=== PATIENT | male | born 1935 | race African-American/Black ===

== ENCOUNTER 2017-05-25 20:51 | Inpatient (IN) | payer MEDICARE, OTHER ==
[~2017-05-25] VITALS: Ht 188 cm; Wt 94.4 kg
[~2017-05-25 20:51] MED LIST: ACET1TAB14 PO; AMIO100T4 PO; ASPI-1158 PO; ATOR10TA PO; DIGO125T82 PO; FERR-63 PO; GLIP10TA10 PO; LISI10TA5 PO; METO50TA5 PO; OMEP20CA4 PO
[2017-05-25] MEDS ORDERED: ACETAMINOPHEN 650MG/20.3ML UDC PO ONE (23:15)
[2017-05-26] MEDS ORDERED: FUROSEMIDE 40MG/4ML VIAL IVP ONE (00:15)
[2017-05-26 00:36] LABS: HEMATOCRIT. 33.9 % (42.0-52.0); HEMOGLOBIN. 11.5 g/dL (14.0-18.0); MEAN CORPUSCULAR HEMOGLOBIN 29.2 pg (28.0-32.0); MEAN CORPUSCULAR VOLUME 86.3 fL (80.0-94.0); MEAN PLATELET VOLUME 7.6 fl (7.4-10.4); PLATELET 183 x1000/uL (130-400); RED BLOOD CELL COUNT 3.93 mill/uL (4.7-6.1); RED CELL DISTRIBUTION WIDTH 15.2 % (11.6-14.6)
[2017-05-26 00:44] LABS: INR 1.2; PARTIAL THROMBOPLASTIN TIME 27.7 sec (24.0-34.0)
[2017-05-26 00:51] LABS: CARBON DIOXIDE 27 mEq/L (21-32); CHLORIDE 102 mEq/L (98-107); TROPONIN I < 0.02 ng/mL (0.00-0.04)
[2017-05-26 01:23] LABS: ATYPICAL LYMPHOCYTES 4; PLATELET ESTIMATE NORMAL
[2017-05-26 04:40] VITALS: BP 158/71
[2017-05-26] MEDS ORDERED: METO25TA6 PO (05:06)
[2017-05-26] MEDS ORDERED: GLIP10TA10 PO (05:06)
[2017-05-26] MEDS ORDERED: BAYER PO (05:06)
[2017-05-26] MEDS ORDERED: HYDR25TA PO (05:06)
[2017-05-26] MEDS ORDERED: AMLO10TA80 PO (05:06)
[2017-05-26] MEDS ORDERED: VITAMIN D2 PO (05:06)
[2017-05-26] MEDS ORDERED: LISI-604 PO (05:06)
[2017-05-26] MEDS ORDERED: CHOL20004 PO (05:06)
[2017-05-26] MEDS ORDERED: DEXTROSE 50% WATER 50ML SYRINGE IV PRN (05:45)
[2017-05-26] MEDS: BLOOD SUGAR DIAGNOSTIC STRIP TEST SCH ×4 (06:20→20:09)
[2017-05-26] MEDS: INSULIN LISPRO 100 UNITS/ML SUBCUT SCH ×4 (06:21→20:15)
[2017-05-26] MEDS: OMEPRAZOLE 20MG CAPSULE EXTENDED RELEASE PO SCH (06:35)
[2017-05-26 08:00] VITALS: BP 156/76
[2017-05-26] MEDS ORDERED: PNEUMOCOCCAL 23-VAL P-SAC VAC 0.5 ML IM ONE (08:00)
[2017-05-26] MEDS: ENOXAPARIN 40MG/0.4ML SYR SUBCUT SCH (08:22)
[2017-05-26] MEDS: ASPIRIN 81MG TABLET PO SCH (08:22)
[2017-05-26] MEDS: CARVEDILOL 3.125 MG TABLET PO SCH ×2 (08:23→20:09)
[2017-05-26] MEDS: AMLODIPINE 10MG TABLET PO SCH (08:23)
[2017-05-26] MEDS: FUROSEMIDE 40MG/4ML VIAL IVP SCH ×2 (08:25→17:38)
[2017-05-26] MEDS ORDERED: AMIODARONE HCL 200 MG TABLET PO SCH (09:00)
[2017-05-26] MEDS ORDERED: LISINOPRIL 20MG TABLET PO SCH (09:00)
[2017-05-26] MEDS ORDERED: MEDICATION NOT ON FORMULARY EA (Amiodarone HCl 200 MG) PO SCH (09:00)
[2017-05-26] MEDS ORDERED: BAYER 81 MG PO SCH (09:00)
[2017-05-26 09:40] LABS: BASOPHILS % 1.1 % (0.0-2.0); HEMATOCRIT. 34.6 % (42.0-52.0); HEMOGLOBIN. 11.7 g/dL (14.0-18.0); MEAN CORPUSCULAR VOLUME 85.9 fL (80.0-94.0); MEAN PLATELET VOLUME 7.9 fl (7.4-10.4); MONOCYTES % 8.8 % (2.0-8.0); NEUTROPHILS % 74.1 % (40.0-76.0); PLATELET 182 x1000/uL (130-400); RED BLOOD CELL COUNT 4.03 mill/uL (4.7-6.1); RED CELL DISTRIBUTION WIDTH 14.9 % (11.6-14.6)
[2017-05-26 10:11] LABS: CARBON DIOXIDE 26 mEq/L (21-32); CHLORIDE 101 mEq/L (98-107); HDL CHOLESTEROL 35 mg/dL (40-59); LDL CHOLESTEROL 26 mg/dL (5-100); TROPONIN I 0.02 ng/mL (0.00-0.04)
[2017-05-26] MEDS ORDERED: POTASSIUM CHLORIDE 20MEQ TABLET SR PO NR (10:45)
[2017-05-26 12:00] VITALS: BP 178/138
[2017-05-26] MEDS ORDERED: LISINOPRIL 20MG TABLET PO NR (12:30)
[2017-05-26] MEDS ORDERED: HYDRALAZINE 20MG/ML VIAL IV PRN (15:00)
[2017-05-26] MEDS ORDERED: CLONIDINE 0.1MG TABLET PO PRN (15:00)
[2017-05-26] MEDS ORDERED: FUROSEMIDE 40MG/4ML VIAL IVP SCH (15:30)
[2017-05-26 16:00] VITALS: BP 158/67
[2017-05-26] MEDS ORDERED: IPRATROPIUM/ALBUTEROL 0.5-3(2.5)MG/3ML NEB HHN PRN (16:41)
[2017-05-26 16:54] LABS: TROPONIN I 0.02 ng/mL (0.00-0.04)
[2017-05-26 17:06] LABS: DIGOXIN 1.2 ng/mL (0.9-2.0)
[2017-05-26] MEDS: LISINOPRIL 20MG TABLET PO SCH (17:38)
[2017-05-26] MEDS: ATORVASTATIN CALCIUM 10MG TABLET PO SCH (17:38)
[2017-05-26] MEDS ORDERED: DIGOXIN 125MCG TABLET PO SCH (18:00)
[2017-05-26 20:00] VITALS: BP 170/88
[2017-05-27] VITALS (7 sets, daily range): BP systolic 124–183; BP diastolic 72–88
[2017-05-27] MEDS: OMEPRAZOLE 20MG CAPSULE EXTENDED RELEASE PO SCH (06:32)
[2017-05-27] MEDS: LISINOPRIL 20MG TABLET PO SCH ×2 (06:32→17:53)
[2017-05-27] MEDS: BLOOD SUGAR DIAGNOSTIC STRIP TEST SCH ×4 (06:32→21:22)
[2017-05-27] MEDS: INSULIN LISPRO 100 UNITS/ML SUBCUT SCH ×4 (06:39→21:36)
[2017-05-27 06:41] LABS: BASOPHILS % 0.7 % (0.0-2.0); EOSINOPHILS % 1.9 % (0.0-5.0); HEMOGLOBIN. 11.5 g/dL (14.0-18.0); MEAN CORPUSCULAR HEMOGLOBIN 29.9 pg (28.0-32.0); MEAN CORPUSCULAR VOLUME 85.9 fL (80.0-94.0); MEAN PLATELET VOLUME 7.9 fl (7.4-10.4); MONOCYTES % 10.3 % (2.0-8.0); NEUTROPHILS % 71.1 % (40.0-76.0); PLATELET 183 x1000/uL (130-400); RED BLOOD CELL COUNT 3.84 mill/uL (4.7-6.1)
[2017-05-27] MEDS: ASPIRIN 81MG TABLET PO SCH (08:55)
[2017-05-27] MEDS: FUROSEMIDE 40MG/4ML VIAL IVP SCH ×2 (08:55→17:48)
[2017-05-27] MEDS: POTASSIUM CHLORIDE 20MEQ TABLET SR PO SCH ×2 (08:55→17:48)
[2017-05-27] MEDS: AMLODIPINE 10MG TABLET PO SCH (08:56)
[2017-05-27] MEDS: CARVEDILOL 3.125 MG TABLET PO SCH ×2 (08:56→21:00)
[2017-05-27] MEDS: ENOXAPARIN 40MG/0.4ML SYR SUBCUT SCH (08:57)
[2017-05-27 09:00] LABS: CARBON DIOXIDE 29 mEq/L (21-32); CHLORIDE 96 mEq/L (98-107); HDL CHOLESTEROL 37 mg/dL (40-59); LDL CHOLESTEROL 32 mg/dL (5-100); TROPONIN I 0.02 ng/mL (0.00-0.04)
[2017-05-27] MEDS ORDERED: MAGNESIUM 2 G PREMIX 50 ML IV ONE (10:30)
[2017-05-27] MEDS ORDERED: POTASSIUM CHLORIDE 20MEQ TABLET SR PO NR (11:30)
[2017-05-27] MEDS ORDERED: MAGNESIUM 2 G PREMIX 50 ML IV NR (12:00)
[2017-05-27] MEDS: HYDRALAZINE HCL 50MG TABLET PO SCH ×2 (13:28→21:31)
[2017-05-27] MEDS: ATORVASTATIN CALCIUM 10MG TABLET PO SCH (17:53)
[2017-05-28] VITALS: BP 153/73
[2017-05-28 04:00] VITALS: BP 132/57
[2017-05-28] MEDS: LISINOPRIL 20MG TABLET PO SCH ×2 (06:25→17:11)
[2017-05-28] MEDS: OMEPRAZOLE 20MG CAPSULE EXTENDED RELEASE PO SCH (06:25)
[2017-05-28] MEDS: BLOOD SUGAR DIAGNOSTIC STRIP TEST SCH ×4 (06:25→20:43)
[2017-05-28] MEDS: HYDRALAZINE HCL 50MG TABLET PO SCH ×3 (06:25→20:38)
[2017-05-28] MEDS: INSULIN LISPRO 100 UNITS/ML SUBCUT SCH ×4 (06:25→20:43)
[2017-05-28 07:26] LABS: EOSINOPHILS % 1.4 % (0.0-5.0); HEMATOCRIT. 38.1 % (42.0-52.0); HEMOGLOBIN. 12.7 g/dL (14.0-18.0); LYMPHOCYTES % 12.7 % (20.0-50.0); MEAN CORPUSCULAR HEMOGLOBIN 29.1 pg (28.0-32.0); MEAN CORPUSCULAR VOLUME 87.4 fL (80.0-94.0); MEAN PLATELET VOLUME 8.1 fl (7.4-10.4); MONOCYTES % 10.1 % (2.0-8.0); NEUTROPHILS % 74.8 % (40.0-76.0); PLATELET 205 x1000/uL (130-400); RED BLOOD CELL COUNT 4.36 mill/uL (4.7-6.1); RED CELL DISTRIBUTION WIDTH 15.1 % (11.6-14.6)
[2017-05-28 07:47] LABS: CARBON DIOXIDE 29 mEq/L (21-32); CHLORIDE 95 mEq/L (98-107)
[2017-05-28 08:00] VITALS: BP 154/68
[2017-05-28] MEDS: AMLODIPINE 10MG TABLET PO SCH (08:26)
[2017-05-28] MEDS: FUROSEMIDE 40MG/4ML VIAL IVP SCH ×2 (08:26→17:12)
[2017-05-28] MEDS: ASPIRIN 81MG TABLET PO SCH (08:26)
[2017-05-28] MEDS: ENOXAPARIN 40MG/0.4ML SYR SUBCUT SCH (08:27)
[2017-05-28] MEDS: POTASSIUM CHLORIDE 20MEQ TABLET SR PO SCH ×2 (08:27→17:11)
[2017-05-28] MEDS: CARVEDILOL 3.125 MG TABLET PO SCH ×2 (08:27→20:38)
[2017-05-28 12:00] VITALS: BP 155/96
[2017-05-28 16:00] VITALS: BP 152/56
[2017-05-28] MEDS ORDERED: HYDROCODONE/ACETAMINOPHEN 5/325MG TABLET PO PRN (16:16)
[2017-05-28] MEDS: ATORVASTATIN CALCIUM 10MG TABLET PO SCH (17:11)
[2017-05-28] MEDS: DOCUSATE SODIUM 100MG CAPSULE PO SCH (17:12)
[2017-05-28] MEDS: DICLOFENAC SODIUM 50MG EC TABLET PO SCH (17:12)
[2017-05-28 20:00] VITALS: BP 163/69
[2017-05-29] VITALS: BP 143/69
[2017-05-29 04:00] VITALS: BP 154/72
[2017-05-29] MEDS: OMEPRAZOLE 20MG CAPSULE EXTENDED RELEASE PO SCH (06:10)
[2017-05-29] MEDS: LISINOPRIL 20MG TABLET PO SCH ×2 (06:10→17:46)
[2017-05-29] MEDS: DICLOFENAC SODIUM 50MG EC TABLET PO SCH ×2 (06:10→17:45)
[2017-05-29] MEDS: HYDRALAZINE HCL 50MG TABLET PO SCH ×3 (06:11→21:10)
[2017-05-29] MEDS: BLOOD SUGAR DIAGNOSTIC STRIP TEST SCH ×4 (06:11→20:42)
[2017-05-29] MEDS: INSULIN LISPRO 100 UNITS/ML SUBCUT SCH ×4 (06:11→20:44)
[2017-05-29 06:17] LABS: CHLORIDE 94 mEq/L (98-107)
[2017-05-29 06:29] LABS: CARBON DIOXIDE 29 mEq/L (21-32)
[2017-05-29 06:58] LABS: BASOPHILS % 0.9 % (0.0-2.0); EOSINOPHILS % 2.1 % (0.0-5.0); HEMATOCRIT. 36.2 % (42.0-52.0); HEMOGLOBIN. 12.6 g/dL (14.0-18.0); LYMPHOCYTES % 16.6 % (20.0-50.0); MEAN CORPUSCULAR HEMOGLOBIN 29.7 pg (28.0-32.0); MEAN CORPUSCULAR VOLUME 85.7 fL (80.0-94.0); MONOCYTES % 11.6 % (2.0-8.0); NEUTROPHILS % 68.8 % (40.0-76.0); PLATELET 195 x1000/uL (130-400); RED BLOOD CELL COUNT 4.23 mill/uL (4.7-6.1); RED CELL DISTRIBUTION WIDTH 15.1 % (11.6-14.6)
[2017-05-29 08:00] VITALS: BP 140/57
[2017-05-29] MEDS: ENOXAPARIN 40MG/0.4ML SYR SUBCUT SCH (08:23)
[2017-05-29] MEDS: ASPIRIN 81MG TABLET PO SCH (08:23)
[2017-05-29] MEDS: FUROSEMIDE 40MG/4ML VIAL IVP SCH ×2 (08:23→17:45)
[2017-05-29] MEDS: POTASSIUM CHLORIDE 20MEQ TABLET SR PO SCH ×2 (08:23→17:45)
[2017-05-29] MEDS: CARVEDILOL 3.125 MG TABLET PO SCH ×2 (08:24→20:46)
[2017-05-29] MEDS: AMLODIPINE 10MG TABLET PO SCH (08:24)
[2017-05-29] MEDS: DOCUSATE SODIUM 100MG CAPSULE PO SCH ×2 (08:24→17:46)
[2017-05-29 12:00] VITALS: BP 149/55
[2017-05-29 16:00] VITALS: BP 149/54
[2017-05-29] MEDS: ATORVASTATIN CALCIUM 10MG TABLET PO SCH (17:45)
[2017-05-29] MEDS: APIXABAN 2.5 MG TABLET PO SCH (17:45)
[2017-05-29 20:00] VITALS: BP 143/69
[2017-05-30] VITALS: BP 146/71
[2017-05-30 04:00] VITALS: BP 158/77
[2017-05-30] MEDS: BLOOD SUGAR DIAGNOSTIC STRIP TEST SCH ×4 (06:08→21:00)
[2017-05-30] MEDS: INSULIN LISPRO 100 UNITS/ML SUBCUT SCH ×4 (06:09→21:00)
[2017-05-30] MEDS: HYDRALAZINE HCL 50MG TABLET PO SCH ×3 (06:27→22:20)
[2017-05-30] MEDS: LISINOPRIL 20MG TABLET PO SCH (06:27)
[2017-05-30 06:43] LABS: BASOPHILS % 0.9 % (0.0-2.0); EOSINOPHILS % 2.2 % (0.0-5.0); HEMATOCRIT. 37.8 % (42.0-52.0); MEAN CORPUSCULAR HEMOGLOBIN 29.4 pg (28.0-32.0); MEAN CORPUSCULAR VOLUME 85.5 fL (80.0-94.0); MEAN PLATELET VOLUME 7.8 fl (7.4-10.4); MONOCYTES % 11.8 % (2.0-8.0); NEUTROPHILS % 69.1 % (40.0-76.0); PLATELET 199 x1000/uL (130-400); RED BLOOD CELL COUNT 4.42 mill/uL (4.7-6.1); RED CELL DISTRIBUTION WIDTH 15.2 % (11.6-14.6)
[2017-05-30 08:00] VITALS: BP 132/80
[2017-05-30] MEDS: FAMOTIDINE 20MG TABLET PO SCH (09:57)
[2017-05-30] MEDS: CARVEDILOL 3.125 MG TABLET PO SCH ×2 (09:57→21:00)
[2017-05-30] MEDS: ASPIRIN 81MG TABLET PO SCH (09:57)
[2017-05-30] MEDS: FUROSEMIDE 40MG TABLET PO SCH (09:57)
[2017-05-30] MEDS: APIXABAN 2.5 MG TABLET PO SCH ×2 (09:57→17:22)
[2017-05-30] MEDS: DICLOFENAC SODIUM 50MG EC TABLET PO SCH ×2 (09:57→17:22)
[2017-05-30] MEDS: DOCUSATE SODIUM 100MG CAPSULE PO SCH ×2 (09:58→17:22)
[2017-05-30] MEDS: NIFEDIPINE XL 30MG TAB PO SCH (09:58)
[2017-05-30] MEDS: POTASSIUM CHLORIDE 20MEQ TABLET SR PO SCH ×2 (09:59→17:22)
[2017-05-30 12:00] VITALS: BP 131/60
[2017-05-30 17:03] VITALS: BP 104/46
[2017-05-30] MEDS: ATORVASTATIN CALCIUM 10MG TABLET PO SCH (17:22)
[2017-05-30 20:00] VITALS: BP 132/81
[2017-05-31] VITALS: BP 128/73
[2017-05-31 04:00] VITALS: BP 122/58
[2017-05-31] MEDS: DICLOFENAC SODIUM 50MG EC TABLET PO SCH ×2 (06:16→17:54)
[2017-05-31] MEDS: BLOOD SUGAR DIAGNOSTIC STRIP TEST SCH ×4 (06:16→21:02)
[2017-05-31] MEDS: HYDRALAZINE HCL 50MG TABLET PO SCH ×3 (06:16→21:03)
[2017-05-31] MEDS: INSULIN LISPRO 100 UNITS/ML SUBCUT SCH ×4 (06:17→21:00)
[2017-05-31 08:00] VITALS: BP 128/69
[2017-05-31] MEDS: CARVEDILOL 3.125 MG TABLET PO SCH ×2 (09:00→21:00)
[2017-05-31] MEDS: NIFEDIPINE XL 30MG TAB PO SCH (09:00)
[2017-05-31] MEDS: FUROSEMIDE 40MG TABLET PO SCH (09:03)
[2017-05-31] MEDS: FAMOTIDINE 20MG TABLET PO SCH (09:03)
[2017-05-31] MEDS: ASPIRIN 81MG TABLET PO SCH (09:03)
[2017-05-31] MEDS: POTASSIUM CHLORIDE 20MEQ TABLET SR PO SCH ×2 (09:03→17:54)
[2017-05-31] MEDS: DOCUSATE SODIUM 100MG CAPSULE PO SCH ×2 (09:03→17:54)
[2017-05-31] MEDS: APIXABAN 2.5 MG TABLET PO SCH ×2 (09:04→17:54)
[2017-05-31 12:00] VITALS: BP 124/66
[2017-05-31 16:00] VITALS: BP 133/68
[2017-05-31] MEDS: ATORVASTATIN CALCIUM 10MG TABLET PO SCH (17:54)
[2017-05-31 20:00] VITALS: BP 144/67
[2017-06-01] VITALS: BP 139/72
[2017-06-01 04:00] VITALS: BP_SYST 123; BP_SYST 146; BP_DIAS 69; BP_DIAS 79
[2017-06-01] MEDS: HYDRALAZINE HCL 50MG TABLET PO SCH ×3 (06:06→21:42)
[2017-06-01] MEDS: BLOOD SUGAR DIAGNOSTIC STRIP TEST SCH ×4 (06:06→21:42)
[2017-06-01] MEDS: INSULIN LISPRO 100 UNITS/ML SUBCUT SCH ×4 (06:07→21:00)
[2017-06-01 08:00] VITALS: BP 141/62
[2017-06-01] MEDS: DOCUSATE SODIUM 100MG CAPSULE PO SCH ×2 (08:50→16:41)
[2017-06-01] MEDS: APIXABAN 2.5 MG TABLET PO SCH ×2 (08:50→16:41)
[2017-06-01] MEDS: CARVEDILOL 3.125 MG TABLET PO SCH ×2 (08:51→09:00)
[2017-06-01] MEDS: POTASSIUM CHLORIDE 20MEQ TABLET SR PO SCH ×2 (08:51→16:22)
[2017-06-01] MEDS: FAMOTIDINE 20MG TABLET PO SCH (08:51)
[2017-06-01] MEDS: NIFEDIPINE XL 30MG TAB PO SCH (08:52)
[2017-06-01] MEDS: DICLOFENAC SODIUM 50MG EC TABLET PO SCH ×2 (08:52→16:41)
[2017-06-01 12:00] VITALS: BP 127/61
[2017-06-01 16:00] VITALS: BP 122/65
[2017-06-01] MEDS: ATORVASTATIN CALCIUM 10MG TABLET PO SCH (16:41)
[2017-06-01 20:00] VITALS: BP 137/67
[2017-06-02] VITALS: BP 131/65
[2017-06-02 04:00] VITALS: BP 141/75
[2017-06-02] MEDS: HYDRALAZINE HCL 50MG TABLET PO SCH ×3 (06:19→21:49)
[2017-06-02] MEDS: DICLOFENAC SODIUM 50MG EC TABLET PO SCH ×2 (06:19→17:33)
[2017-06-02] MEDS: BLOOD SUGAR DIAGNOSTIC STRIP TEST SCH ×4 (06:19→21:48)
[2017-06-02] MEDS: INSULIN LISPRO 100 UNITS/ML SUBCUT SCH ×4 (06:23→22:06)
[2017-06-02 06:48] LABS: BASOPHILS % 1.2 % (0.0-2.0); EOSINOPHILS % 1.9 % (0.0-5.0); HEMATOCRIT. 36.5 % (42.0-52.0); HEMOGLOBIN. 12.4 g/dL (14.0-18.0); LYMPHOCYTES % 17.4 % (20.0-50.0); MEAN CORPUSCULAR HEMOGLOBIN 29.2 pg (28.0-32.0); MEAN CORPUSCULAR VOLUME 86.1 fL (80.0-94.0); MEAN PLATELET VOLUME 7.7 fl (7.4-10.4); MONOCYTES % 11.3 % (2.0-8.0); NEUTROPHILS % 68.2 % (40.0-76.0); PLATELET 196 x1000/uL (130-400); RED BLOOD CELL COUNT 4.24 mill/uL (4.7-6.1); RED CELL DISTRIBUTION WIDTH 14.6 % (11.6-14.6)
[2017-06-02 08:00] VITALS: BP 107/52
[2017-06-02] MEDS: POTASSIUM CHLORIDE 20MEQ TABLET SR PO SCH ×2 (08:30→17:33)
[2017-06-02] MEDS: DOCUSATE SODIUM 100MG CAPSULE PO SCH ×2 (08:30→17:33)
[2017-06-02] MEDS: APIXABAN 2.5 MG TABLET PO SCH ×2 (08:30→17:33)
[2017-06-02] MEDS: NIFEDIPINE XL 30MG TAB PO SCH (08:30)
[2017-06-02] MEDS: FAMOTIDINE 20MG TABLET PO SCH (08:30)
[2017-06-02 12:00] VITALS: BP 128/62
[2017-06-02 16:00] VITALS: BP 108/60
[2017-06-02] MEDS ORDERED: NA PHOS,M-B/NA PHOS,DI-BA ENEMA 118ML PR PRN (16:00)
[2017-06-02] MEDS: ATORVASTATIN CALCIUM 10MG TABLET PO SCH (17:33)
[2017-06-02] MEDS ORDERED: MAGNESIUM CITRATE 300ML SOLUTION PO NR (18:30)
[2017-06-02 20:00] VITALS: BP 142/83
[2017-06-03] VITALS (7 sets, daily range): BP systolic 110–135; BP diastolic 57–99
[2017-06-03] MEDS: HYDRALAZINE HCL 50MG TABLET PO SCH ×3 (05:48→21:23)
[2017-06-03] MEDS: BLOOD SUGAR DIAGNOSTIC STRIP TEST SCH ×4 (05:49→21:24)
[2017-06-03] MEDS: INSULIN LISPRO 100 UNITS/ML SUBCUT SCH ×4 (06:19→21:00)
[2017-06-03 06:36] LABS: BASOPHILS % 1.2 % (0.0-2.0); EOSINOPHILS % 1.7 % (0.0-5.0); HEMATOCRIT. 38.4 % (42.0-52.0); HEMOGLOBIN. 12.9 g/dL (14.0-18.0); LYMPHOCYTES % 14.3 % (20.0-50.0); MEAN CORPUSCULAR HEMOGLOBIN 29.2 pg (28.0-32.0); MEAN CORPUSCULAR VOLUME 86.6 fL (80.0-94.0); MEAN PLATELET VOLUME 7.5 fl (7.4-10.4); MONOCYTES % 10.6 % (2.0-8.0); NEUTROPHILS % 72.2 % (40.0-76.0); PLATELET 213 x1000/uL (130-400); RED BLOOD CELL COUNT 4.43 mill/uL (4.7-6.1); RED CELL DISTRIBUTION WIDTH 15.3 % (11.6-14.6)
[2017-06-03] MEDS: NIFEDIPINE XL 30MG TAB PO SCH (08:20)
[2017-06-03] MEDS: DICLOFENAC SODIUM 50MG EC TABLET PO SCH (08:20)
[2017-06-03] MEDS: FAMOTIDINE 20MG TABLET PO SCH (08:20)
[2017-06-03] MEDS: DOCUSATE SODIUM 100MG CAPSULE PO SCH ×2 (08:20→18:01)
[2017-06-03] MEDS: APIXABAN 2.5 MG TABLET PO SCH ×2 (08:20→18:00)
[2017-06-03] MEDS: POTASSIUM CHLORIDE 20MEQ TABLET SR PO SCH (08:23)
[2017-06-03] MEDS ORDERED: APIX2.5T PO (13:07)
[2017-06-03] MEDS ORDERED: POTA20TA82 PO (13:07)
[2017-06-03] MEDS ORDERED: NIFE30TA83 PO (13:07)
[2017-06-03] MEDS ORDERED: METO25TA6 PO (13:07)
[2017-06-03] MEDS ORDERED: SODIUM POLYSTYRENE SULFONATE 15 G/60 ML BOT PO NR ×3 (14:00→21:30)
[2017-06-03] MEDS: ATORVASTATIN CALCIUM 10MG TABLET PO SCH (18:00)
[2017-06-04] VITALS: BP 124/63
[2017-06-04 04:00] VITALS: BP 119/68
[2017-06-04] MEDS: HYDRALAZINE HCL 50MG TABLET PO SCH ×3 (05:58→21:23)
[2017-06-04] MEDS: BLOOD SUGAR DIAGNOSTIC STRIP TEST SCH ×4 (06:00→20:42)
[2017-06-04] MEDS: INSULIN LISPRO 100 UNITS/ML SUBCUT SCH ×4 (06:00→20:42)
[2017-06-04 08:00] VITALS: BP 117/64
[2017-06-04] MEDS: NIFEDIPINE XL 30MG TAB PO SCH (09:00)
[2017-06-04] MEDS: DOCUSATE SODIUM 100MG CAPSULE PO SCH ×2 (09:52→18:04)
[2017-06-04] MEDS: APIXABAN 2.5 MG TABLET PO SCH ×2 (09:53→18:04)
[2017-06-04] MEDS: FAMOTIDINE 20MG TABLET PO SCH (09:53)
[2017-06-04 12:00] VITALS: BP 122/59
[2017-06-04 16:00] VITALS: BP 126/72
[2017-06-04] MEDS: ATORVASTATIN CALCIUM 10MG TABLET PO SCH (18:04)
[2017-06-04 20:00] VITALS: BP 128/61
[2017-06-05 04:00] VITALS: BP 159/70
[2017-06-05] MEDS: INSULIN LISPRO 100 UNITS/ML SUBCUT SCH ×2 (06:35→11:33)
[2017-06-05] MEDS: BLOOD SUGAR DIAGNOSTIC STRIP TEST SCH ×2 (06:35→11:33)
[2017-06-05] MEDS: HYDRALAZINE HCL 50MG TABLET PO SCH ×2 (06:36→13:28)
[2017-06-05 07:06] LABS: CARBON DIOXIDE 24 mEq/L (21-32); CHLORIDE 100 mEq/L (98-107); TROPONIN I < 0.02 ng/mL (0.00-0.04)
[2017-06-05 07:08] LABS: EOSINOPHILS % 1.6 % (0.0-5.0); HEMATOCRIT. 36.6 % (42.0-52.0); HEMOGLOBIN. 12.3 g/dL (14.0-18.0); LYMPHOCYTES % 17.3 % (20.0-50.0); MEAN CORPUSCULAR HEMOGLOBIN 29.1 pg (28.0-32.0); MEAN CORPUSCULAR VOLUME 86.4 fL (80.0-94.0); MEAN PLATELET VOLUME 7.6 fl (7.4-10.4); NEUTROPHILS % 69.1 % (40.0-76.0); PLATELET 197 x1000/uL (130-400); RED BLOOD CELL COUNT 4.24 mill/uL (4.7-6.1)
[2017-06-05 08:00] VITALS: BP 112/64
[2017-06-05] MEDS: FAMOTIDINE 20MG TABLET PO SCH (08:14)
[2017-06-05] MEDS: DOCUSATE SODIUM 100MG CAPSULE PO SCH (08:14)
[2017-06-05] MEDS: NIFEDIPINE XL 30MG TAB PO SCH (08:14)
[2017-06-05] MEDS: APIXABAN 2.5 MG TABLET PO SCH (08:14)
[2017-06-05 14:35] VITALS: BP 112/64
[2017-06-13] MEDS ORDERED: TRAM50TA3 PO (23:28)
[2017-06-13] MEDS ORDERED: DOCU-150 PO (23:28)
[2017-06-13] MEDS ORDERED: LISI-604 PO (23:28)
[2017-06-23] MEDS ORDERED: METR250T PO (11:08)
[2017-06-23] MEDS ORDERED: LEVO500T15 PO (11:08)
== END 2017-06-05 15:35 | disposition home or self-care (01) | DRG 291 ==
LOC: ER 21:57 → 5WST 05-26 01:24 → CANRESERV 05-26 02:53 → ENRESERV 05-26 02:53 → 5WST 05-26 05:02
PROVIDERS: ADMIT Internal Medicine; ATTEND Internal Medicine
DX: I13.0 Hypertensive heart and chronic kidney disease with heart failure and stage 1 through stage 4 chronic kidney disease, or unspecified chronic kidney disease (principal); J96.00 Acute respiratory failure, unspecified whether with hypoxia or hypercapnia; I50.33 Acute on chronic diastolic (congestive) heart failure; E87.1 Hypo-osmolality and hyponatremia; N17.9 Acute kidney failure, unspecified; I42.9 Cardiomyopathy, unspecified; E11.22 Type 2 diabetes mellitus with diabetic chronic kidney disease; E78.00 Pure hypercholesterolemia, unspecified; E78.5 Hyperlipidemia, unspecified; E86.9 Volume depletion, unspecified; E87.5 Hyperkalemia; E87.6 Hypokalemia; I35.0 Nonrheumatic aortic (valve) stenosis; I44.7 Left bundle-branch block, unspecified; I48.2 Chronic atrial fibrillation; N18.9 Chronic kidney disease, unspecified; Z79.01 Long term (current) use of anticoagulants; Z79.84 Long term (current) use of oral hypoglycemic drugs; Z79.899 Other long term (current) drug therapy; Z95.1 Presence of aortocoronary bypass graft; Z95.2 Presence of prosthetic heart valve; Z95.3 Presence of xenogenic heart valve
CPT/HCPCS: 36415; 71010; 76770; 80048; 80053; 80061; 80162; 82962; 83690; 83735; 83880; 84132; 84443; 84484; 85025; 85379; 85610; 85730; 90732; 93005; 93306; 93970; 96374; 97110; 97116; 97162; 97166; 97530; 99285; J0360; J1650; J1815; J1940; J3475; J7050; J7620

== ENCOUNTER 2018-09-22 11:37 | Inpatient (IN) | payer MEDICARE, OTHER ==
[~2018-09-22] VITALS: Ht 193 cm; Wt 116.6 kg
[~2018-09-22 11:37] MED LIST changes: -ACET1TAB14 PO; -AMIO100T4 PO; +APIX2.5T PO; -ASPI-1158 PO; +BAYER PO; +CHOL20004 PO; -DIGO125T82 PO; +DOCU-150 PO; -FERR-63 PO; +HYDR25TA PO; +LEVO500T2 PO; +LISI-604 PO; -LISI10TA5 PO; +METO25TA6 PO; -METO50TA5 PO; +METR250T PO; +NIFE30TA83 PO; -OMEP20CA4 PO; +POTA20TA82 PO; +TRAM50TA3 PO; +VITAMIN D2 PO
[2018-09-22 12:21] LABS: HEMATOCRIT. 32.3 % (42.0-52.0); HEMOGLOBIN. 10.5 g/dL (14.0-18.0); MEAN CORPUSCULAR HEMOGLOBIN 25.8 pg (28.0-32.0); MEAN CORPUSCULAR VOLUME 79.4 fL (80.0-94.0); MEAN PLATELET VOLUME 8.8 fl (7.4-10.4); PLATELET 149 x1000/uL (130-400); RED BLOOD CELL COUNT 4.07 mill/uL (4.7-6.1); RED CELL DISTRIBUTION WIDTH 16.4 % (11.6-14.6)
[2018-09-22 12:26] LABS: CHLORIDE 97 mEq/L (98-107); INR 1.2; PROTHROMBIN TIME 11.6 sec (9.1-11.1)
[2018-09-22 12:54] LABS: PLATELET ESTIMATE NORMAL
[2018-09-22] MEDS ORDERED: SODIUM CHLORIDE 0.9% 1,000 ML IV ONE (13:00)
[2018-09-22] MEDS ORDERED: FUROSEMIDE 100MG/10ML VIAL IV ONE (13:15)
[2018-09-22] MEDS ORDERED: INSULIN REGULAR (HUMULIN R) 300UNITS/3ML IV ONE (13:15)
[2018-09-22] MEDS ORDERED: DEXTROSE 50% WATER 50ML SYRINGE IV ONE (13:15)
[2018-09-22] MEDS: CEFTRIAXONE 1 G PREMIX 50 ML IV NR ×2 (14:00→15:20)
[2018-09-22 17:02] LABS: CLARITY URINE CLEAR (CLEAR); COLOR URINE YELLOW (YELLOW); KETONES URINE NEGATIVE (NEGATIVE); LEUKOCYTE ESTERASE URINE NEGATIVE (NEGATIVE); NITRITE URINE NEGATIVE (NEGATIVE); OCCULT BLOOD URINE TRACE (NEGATIVE); PROTEIN URINE NEGATIVE (NEGATIVE); SPECIFIC GRAVITY URINE 1.014 (1.005-1.030); UROBILINOGEN URINE 0.2 E.U./dL (0.2-1.0)
[2018-09-22] MEDS: MORPHINE SULFATE 4 MG/ML CPJ (NOT FOR IM USE) IV PRN (19:49)
[2018-09-22 20:00] VITALS: BP 119/53
[2018-09-22] MEDS ORDERED: APIX2.5T PO (20:26)
[2018-09-22] MEDS ORDERED: NAPR-677 PO (20:26)
[2018-09-22] MEDS ORDERED: OMEP20CA10 PO (20:26)
[2018-09-22] MEDS ORDERED: ELIQUIS XX SCH (21:15)
[2018-09-22] MEDS ORDERED: ONDANSETRON HCL 4MG/2ML INJ IV PRN (21:15)
[2018-09-22] MEDS ORDERED: DEXTROSE 50% WATER 50ML SYRINGE IV PRN (21:15)
[2018-09-22] MEDS ORDERED: SODIUM POLYSTYRENE SULFONATE 15 G/60 ML BOT PO NR (22:00)
[2018-09-22] MEDS ORDERED: INSULIN GLARGINE UD 100 UNITS/ML SYR SUBCUT SCH (22:00)
[2018-09-22] MEDS ORDERED: DOCUSATE SODIUM 100MG CAPSULE PO SCH (22:00)
[2018-09-22] MEDS: APIXABAN 2.5 MG TABLET PO SCH (22:07)
[2018-09-22] MEDS: DOCUSATE SODIUM 250MG CAPSULE PO SCH (22:46)
[2018-09-23] VITALS: BP 113/48
[2018-09-23 04:00] VITALS: BP 114/58
[2018-09-23] MEDS: BLOOD SUGAR DIAGNOSTIC STRIP TEST SCH ×4 (05:55→21:33)
[2018-09-23] MEDS ORDERED: INSULIN LISPRO 100 UNITS/ML SUBCUT SCH (07:15)
[2018-09-23 07:57] LABS: HEMATOCRIT. 30.2 % (42.0-52.0); HEMOGLOBIN. 9.9 g/dL (14.0-18.0); MEAN CORPUSCULAR HEMOGLOBIN 25.9 pg (28.0-32.0); MEAN CORPUSCULAR VOLUME 79.1 fL (80.0-94.0); MEAN PLATELET VOLUME 8.7 fl (7.4-10.4); PLATELET 147 x1000/uL (130-400); RED BLOOD CELL COUNT 3.82 mill/uL (4.7-6.1); RED CELL DISTRIBUTION WIDTH 16.4 % (11.6-14.6)
[2018-09-23 08:00] VITALS: BP 106/51
[2018-09-23] MEDS ORDERED: LACTULOSE 20G/30ML UDC PO PRN (08:45)
[2018-09-23] MEDS: ASPIRIN 81MG TABLET PO SCH (08:54)
[2018-09-23] MEDS: DOCUSATE SODIUM 250MG CAPSULE PO SCH ×2 (08:54→18:34)
[2018-09-23] MEDS: OMEPRAZOLE 20MG CAPSULE EXTENDED RELEASE PO SCH (08:54)
[2018-09-23] MEDS: APIXABAN 2.5 MG TABLET PO SCH ×2 (08:55→22:14)
[2018-09-23] MEDS: MORPHINE SULFATE 4 MG/ML CPJ (NOT FOR IM USE) IV PRN ×2 (08:57→22:15)
[2018-09-23] MEDS ORDERED: MEDICATION NOT ON FORMULARY EA (Lisinopril 1 TAB) PO SCH (09:00)
[2018-09-23] MEDS ORDERED: MEDICATION NOT ON FORMULARY EA (Metoprolol Tartrate 1 TAB) PO SCH (09:00)
[2018-09-23] MEDS ORDERED: BAYER 81 MG PO SCH (09:00)
[2018-09-23] MEDS ORDERED: LISINOPRIL 20MG TABLET PO SCH (09:00)
[2018-09-23 09:03] LABS: PHOSPHORUS 3.5 mg/dL (2.5-4.9)
[2018-09-23 10:21] LABS: TOTAL IRON BINDING CAPACITY 261 ug/dL (250-450)
[2018-09-23 12:00] VITALS: BP 102/54
[2018-09-23] MEDS ORDERED: INFLUENZA VIRUS VACCINE(AFLURIA) 0.5ML SYR IM ONE (12:00)
[2018-09-23] MEDS: NIFEDIPINE XL 30MG TAB PO SCH (12:00)
[2018-09-23] MEDS: INSULIN GLARGINE UD 100 UNITS/ML SYR SUBCUT SCH ×2 (12:58→22:49)
[2018-09-23] MEDS: INSULIN LISPRO 100 UNITS/ML SUBCUT SCH ×3 (13:24→22:15)
[2018-09-23] MEDS: SODIUM CHLORIDE 0.45% 1,000 ML IV SCH (13:30)
[2018-09-23] MEDS: METOPROLOL TARTRATE 25MG TABLET PO SCH (14:00)
[2018-09-23 14:08] LABS: CREATINE KINASE 248 IU/L (39-308)
[2018-09-23] MEDS ORDERED: CEFTRIAXONE 1,000 MG in DEXTROSE 5% WATER 50 ML IV SCH (15:00)
[2018-09-23 16:00] VITALS: BP 114/57
[2018-09-23 20:00] VITALS: BP 115/52
[2018-09-23 21:18] LABS: PLATELET ESTIMATE NORMAL
[2018-09-23] MEDS: ATORVASTATIN CALCIUM 10MG TABLET PO SCH (22:14)
[2018-09-23] MEDS: IRON SUCROSE COMPLEX 100 MG/5 ML ML IV SCH (22:49)
[2018-09-24] VITALS (8 sets, daily range): BP systolic 85–107; BP diastolic 39–56
[2018-09-24] MEDS: SODIUM CHLORIDE 0.45% 1,000 ML IV SCH (03:34)
[2018-09-24] MEDS: BLOOD SUGAR DIAGNOSTIC STRIP TEST SCH ×4 (05:42→20:56)
[2018-09-24 08:04] LABS: HEMATOCRIT. 28.8 % (42.0-52.0); HEMOGLOBIN. 9.5 g/dL (14.0-18.0); MEAN CORPUSCULAR VOLUME 79.1 fL (80.0-94.0); MEAN PLATELET VOLUME 8.9 fl (7.4-10.4); PLATELET 148 x1000/uL (130-400); RED BLOOD CELL COUNT 3.65 mill/uL (4.7-6.1); RED CELL DISTRIBUTION WIDTH 16.6 % (11.6-14.6)
[2018-09-24] MEDS: METOPROLOL TARTRATE 25MG TABLET PO SCH (09:00)
[2018-09-24] MEDS: INSULIN LISPRO 100 UNITS/ML SUBCUT SCH ×7 (09:33→20:57)
[2018-09-24] MEDS: GLIPIZIDE 5MG XL TABLET PO SCH (09:34)
[2018-09-24] MEDS: ASPIRIN 81MG TABLET PO SCH (09:34)
[2018-09-24] MEDS: DOCUSATE SODIUM 250MG CAPSULE PO SCH ×2 (09:34→18:55)
[2018-09-24] MEDS: OMEPRAZOLE 20MG CAPSULE EXTENDED RELEASE PO SCH (09:34)
[2018-09-24] MEDS: APIXABAN 2.5 MG TABLET PO SCH ×2 (09:41→20:56)
[2018-09-24 11:10] LABS: PLATELET ESTIMATE NORMAL
[2018-09-24] MEDS: CEFTRIAXONE 1 G PREMIX 50 ML IV SCH (11:19)
[2018-09-24] MEDS: INSULIN GLARGINE UD 100 UNITS/ML SYR SUBCUT SCH ×2 (11:20→20:57)
[2018-09-24] MEDS: NIFEDIPINE XL 30MG TAB PO SCH (12:00)
[2018-09-24] MEDS: ATORVASTATIN CALCIUM 10MG TABLET PO SCH (20:56)
[2018-09-24] MEDS: IRON SUCROSE COMPLEX 100 MG/5 ML ML IV SCH (22:08)
[2018-09-25] VITALS: BP 99/53
[2018-09-25] MEDS: SODIUM CHLORIDE 0.45% 1,000 ML IV SCH ×2 (02:32→15:32)
[2018-09-25 04:00] VITALS: BP 131/51
[2018-09-25] MEDS: INSULIN LISPRO 100 UNITS/ML SUBCUT SCH ×7 (07:40→21:00)
[2018-09-25 08:00] VITALS: BP 129/50
[2018-09-25] MEDS: BLOOD SUGAR DIAGNOSTIC STRIP TEST SCH ×4 (08:14→21:00)
[2018-09-25] MEDS: GLIPIZIDE 5MG XL TABLET PO SCH (09:07)
[2018-09-25] MEDS: DOCUSATE SODIUM 250MG CAPSULE PO SCH ×2 (09:08→17:43)
[2018-09-25] MEDS: OMEPRAZOLE 20MG CAPSULE EXTENDED RELEASE PO SCH (09:08)
[2018-09-25] MEDS: APIXABAN 2.5 MG TABLET PO SCH ×2 (09:08→23:01)
[2018-09-25] MEDS: METOPROLOL TARTRATE 25MG TABLET PO SCH (09:08)
[2018-09-25] MEDS: ASPIRIN 81MG TABLET PO SCH (09:09)
[2018-09-25] MEDS: CEFTRIAXONE 1 G PREMIX 50 ML IV SCH (09:09)
[2018-09-25 10:05] LABS: HEMATOCRIT. 29.3 % (42.0-52.0); HEMOGLOBIN. 9.4 g/dL (14.0-18.0); MEAN CORPUSCULAR HEMOGLOBIN 25.4 pg (28.0-32.0); MEAN PLATELET VOLUME 8.9 fl (7.4-10.4); PLATELET 155 x1000/uL (130-400); RED BLOOD CELL COUNT 3.71 mill/uL (4.7-6.1); RED CELL DISTRIBUTION WIDTH 16.2 % (11.6-14.6)
[2018-09-25] MEDS: INSULIN GLARGINE UD 100 UNITS/ML SYR SUBCUT SCH ×2 (10:26→23:04)
[2018-09-25 12:00] VITALS: BP 99/63
[2018-09-25] MEDS: NIFEDIPINE XL 30MG TAB PO SCH (12:00)
[2018-09-25 13:34] LABS: PLATELET ESTIMATE NORMAL
[2018-09-25] MEDS: AZITHROMYCIN 500 MG TABLET PO SCH (15:30)
[2018-09-25] MEDS: TAMSULOSIN HCL 0.4MG SR CAPSULE PO SCH (15:32)
[2018-09-25 15:34] VITALS: BP 140/51
[2018-09-25] MEDS: DEXAMETHASONE 4MG/ML 1ML VIAL IV SCH ×2 (17:43→23:01)
[2018-09-25 19:27] LABS: CLARITY URINE CLOUDY (CLEAR); KETONES URINE NEGATIVE (NEGATIVE); LEUKOCYTE ESTERASE URINE TRACE (NEGATIVE); NITRITE URINE NEGATIVE (NEGATIVE); OCCULT BLOOD URINE TRACE (NEGATIVE); PROTEIN URINE 1+ (NEGATIVE); SPECIFIC GRAVITY URINE 1.018 (1.005-1.030)
[2018-09-25 19:39] LABS: COLOR URINE YELLOW (YELLOW)
[2018-09-25] MEDS: IRON SUCROSE COMPLEX 100 MG/5 ML ML IV SCH (23:01)
[2018-09-25] MEDS: ATORVASTATIN CALCIUM 10MG TABLET PO SCH (23:02)
[2018-09-25] MEDS: HYDROCODONE/ACETAMINOPHEN 5/325MG TABLET PO PRN (23:02)
[2018-09-26] VITALS: BP 107/49
[2018-09-26 04:00] VITALS: BP 103/54
[2018-09-26] MEDS: SODIUM CHLORIDE 0.45% 1,000 ML IV SCH ×2 (05:55→12:45)
[2018-09-26 06:18] LABS: HEMATOCRIT. 29.2 % (42.0-52.0); HEMOGLOBIN. 9.5 g/dL (14.0-18.0); MEAN CORPUSCULAR HEMOGLOBIN 25.4 pg (28.0-32.0); MEAN CORPUSCULAR VOLUME 77.6 fL (80.0-94.0); MEAN PLATELET VOLUME 8.4 fl (7.4-10.4); PLATELET 166 x1000/uL (130-400); RED BLOOD CELL COUNT 3.76 mill/uL (4.7-6.1); RED CELL DISTRIBUTION WIDTH 16.6 % (11.6-14.6)
[2018-09-26] MEDS: DEXAMETHASONE 4MG/ML 1ML VIAL IV SCH ×3 (06:22→17:47)
[2018-09-26] MEDS: BLOOD SUGAR DIAGNOSTIC STRIP TEST SCH ×4 (06:23→20:30)
[2018-09-26] MEDS: HYDROCODONE/ACETAMINOPHEN 5/325MG TABLET PO PRN ×2 (06:27→16:52)
[2018-09-26] MEDS: INSULIN LISPRO 100 UNITS/ML SUBCUT SCH ×7 (07:40→21:30)
[2018-09-26 08:00] VITALS: BP 123/58
[2018-09-26] MEDS: DOCUSATE SODIUM 250MG CAPSULE PO SCH ×2 (10:24→16:52)
[2018-09-26] MEDS: ASPIRIN 81MG TABLET PO SCH (10:25)
[2018-09-26] MEDS: APIXABAN 2.5 MG TABLET PO SCH ×2 (10:25→21:27)
[2018-09-26] MEDS: GLIPIZIDE 5MG XL TABLET PO SCH (10:25)
[2018-09-26] MEDS: OMEPRAZOLE 20MG CAPSULE EXTENDED RELEASE PO SCH (10:25)
[2018-09-26] MEDS: METOPROLOL TARTRATE 25MG TABLET PO SCH (10:29)
[2018-09-26] MEDS: MORPHINE SULFATE 4 MG/ML CPJ (NOT FOR IM USE) IV PRN (10:30)
[2018-09-26] MEDS: CEFTRIAXONE 1 G PREMIX 50 ML IV SCH (10:31)
[2018-09-26] MEDS: INSULIN GLARGINE UD 100 UNITS/ML SYR SUBCUT SCH ×2 (10:33→21:31)
[2018-09-26] MEDS: TAMSULOSIN HCL 0.4MG SR CAPSULE PO SCH (10:37)
[2018-09-26 11:19] LABS: PLATELET ESTIMATE NORMAL
[2018-09-26 12:00] VITALS: BP 115/62
[2018-09-26] MEDS: NIFEDIPINE XL 30MG TAB PO SCH (12:45)
[2018-09-26 16:00] VITALS: BP 106/53
[2018-09-26] MEDS: AZITHROMYCIN 500 MG TABLET PO SCH (16:51)
[2018-09-26 20:00] VITALS: BP 132/52
[2018-09-26] MEDS: ATORVASTATIN CALCIUM 10MG TABLET PO SCH (21:27)
[2018-09-27] VITALS: BP_SYST 114; BP_SYST 132; BP_DIAS 51; BP_DIAS 64
[2018-09-27] MEDS: SODIUM CHLORIDE 0.45% 1,000 ML IV SCH ×2 (03:39→16:56)
[2018-09-27] MEDS: MORPHINE SULFATE 4 MG/ML CPJ (NOT FOR IM USE) IV PRN (03:39)
[2018-09-27 04:00] VITALS: BP 140/54
[2018-09-27 06:10] LABS: HEMATOCRIT. 30.5 % (42.0-52.0); HEMOGLOBIN. 9.9 g/dL (14.0-18.0); MEAN CORPUSCULAR HEMOGLOBIN 25.3 pg (28.0-32.0); MEAN CORPUSCULAR VOLUME 78.2 fL (80.0-94.0); MEAN PLATELET VOLUME 8.5 fl (7.4-10.4); PLATELET 198 x1000/uL (130-400); RED CELL DISTRIBUTION WIDTH 16.3 % (11.6-14.6)
[2018-09-27] MEDS: BLOOD SUGAR DIAGNOSTIC STRIP TEST SCH ×4 (06:53→20:51)
[2018-09-27 08:00] VITALS: BP 125/55
[2018-09-27] MEDS: METOPROLOL TARTRATE 25MG TABLET PO SCH (08:40)
[2018-09-27] MEDS: HYDROCODONE/ACETAMINOPHEN 5/325MG TABLET PO PRN ×3 (08:40→20:42)
[2018-09-27] MEDS: DOCUSATE SODIUM 250MG CAPSULE PO SCH ×2 (08:40→17:38)
[2018-09-27] MEDS: TAMSULOSIN HCL 0.4MG SR CAPSULE PO SCH (08:41)
[2018-09-27] MEDS: ASPIRIN 81MG TABLET PO SCH (08:41)
[2018-09-27] MEDS: FAMOTIDINE 20MG TABLET PO SCH (08:41)
[2018-09-27] MEDS: GLIPIZIDE 5MG XL TABLET PO SCH (08:41)
[2018-09-27] MEDS: INSULIN LISPRO 100 UNITS/ML SUBCUT SCH ×7 (08:42→20:52)
[2018-09-27] MEDS: CEFTRIAXONE 1 G PREMIX 50 ML IV SCH (09:10)
[2018-09-27] MEDS: APIXABAN 2.5 MG TABLET PO SCH ×2 (10:16→20:41)
[2018-09-27] MEDS: INSULIN GLARGINE UD 100 UNITS/ML SYR SUBCUT SCH ×2 (10:18→21:39)
[2018-09-27 12:00] VITALS: BP 109/78
[2018-09-27] MEDS ORDERED: DEXAMETHASONE 4MG/ML 1ML VIAL IV SCH (12:00)
[2018-09-27] MEDS: NIFEDIPINE XL 30MG TAB PO SCH (12:02)
[2018-09-27 13:50] LABS: PLATELET ESTIMATE NORMAL
[2018-09-27 16:00] VITALS: BP 103/54
[2018-09-27] MEDS: AZITHROMYCIN 500 MG TABLET PO SCH (16:55)
[2018-09-27] MEDS ORDERED: VANCOMYCIN 2,000 MG in DEXT 5% WATER 500 ML IV SCH (17:00)
[2018-09-27 20:00] VITALS: BP 126/53
[2018-09-27] MEDS: ATORVASTATIN CALCIUM 10MG TABLET PO SCH (20:41)
[2018-09-27] MEDS: DEXAMETHASONE 4MG/ML 1ML VIAL IV SCH (20:43)
[2018-09-28] VITALS: BP 132/56
[2018-09-28] MEDS: HYDROCODONE/ACETAMINOPHEN 5/325MG TABLET PO PRN ×3 (03:26→13:44)
[2018-09-28 04:00] VITALS: BP 120/53
[2018-09-28] MEDS: DEXAMETHASONE 4MG/ML 1ML VIAL IV SCH ×3 (05:40→21:37)
[2018-09-28 07:32] LABS: HEMATOCRIT. 30.7 % (42.0-52.0); MEAN CORPUSCULAR HEMOGLOBIN 25.4 pg (28.0-32.0); MEAN CORPUSCULAR VOLUME 78.4 fL (80.0-94.0); MEAN PLATELET VOLUME 8.3 fl (7.4-10.4); PLATELET 217 x1000/uL (130-400); RED BLOOD CELL COUNT 3.92 mill/uL (4.7-6.1); RED CELL DISTRIBUTION WIDTH 16.4 % (11.6-14.6)
[2018-09-28 08:00] VITALS: BP 150/60
[2018-09-28] MEDS: CEFTRIAXONE 1 G PREMIX 50 ML IV SCH (08:10)
[2018-09-28] MEDS: INSULIN LISPRO 100 UNITS/ML SUBCUT SCH ×7 (08:10→21:00)
[2018-09-28] MEDS: SODIUM CHLORIDE 0.45% 1,000 ML IV SCH (08:11)
[2018-09-28] MEDS: ASPIRIN 81MG TABLET PO SCH (08:21)
[2018-09-28] MEDS: GLIPIZIDE 5MG XL TABLET PO SCH (08:21)
[2018-09-28] MEDS: DOCUSATE SODIUM 250MG CAPSULE PO SCH ×2 (08:21→18:35)
[2018-09-28] MEDS: APIXABAN 2.5 MG TABLET PO SCH ×2 (08:23→21:30)
[2018-09-28] MEDS: TAMSULOSIN HCL 0.4MG SR CAPSULE PO SCH (08:25)
[2018-09-28] MEDS: METOPROLOL TARTRATE 25MG TABLET PO SCH (08:26)
[2018-09-28] MEDS: BLOOD SUGAR DIAGNOSTIC STRIP TEST SCH ×4 (08:27→21:00)
[2018-09-28] MEDS: FAMOTIDINE 20MG TABLET PO SCH (08:37)
[2018-09-28 09:08] LABS: ATYPICAL LYMPHOCYTES 2
[2018-09-28 09:09] LABS: PLATELET ESTIMATE NORMAL
[2018-09-28 12:00] VITALS: BP 159/59
[2018-09-28] MEDS ORDERED: LIDOCAINE 5% PATCH TOP SCH (12:30)
[2018-09-28] MEDS ORDERED: BISACODYL 10MG SUPP PR PRN (12:30)
[2018-09-28] MEDS: INSULIN GLARGINE UD 100 UNITS/ML SYR SUBCUT SCH ×2 (12:47→22:00)
[2018-09-28] MEDS: NIFEDIPINE XL 30MG TAB PO SCH (12:48)
[2018-09-28 16:00] VITALS: BP 111/50
[2018-09-28 17:06] LABS: ANA IFA Negative (.)
[2018-09-28] MEDS: LIDOCAINE 5% PATCH TOP SCH ×3 (18:23)
[2018-09-28] MEDS: AZITHROMYCIN 500 MG TABLET PO SCH (18:35)
[2018-09-28] MEDS: VANCOMYCIN 1250MG in DEXTROSE 5% WATER 250ML IV SCH (18:35)
[2018-09-28 20:00] VITALS: BP 121/54
[2018-09-28] MEDS ORDERED: POLYETHYLENE GLYCOL 3350 (17GM) 1 DOSE PACK PO SCH (21:00)
[2018-09-28] MEDS: ATORVASTATIN CALCIUM 10MG TABLET PO SCH (21:30)
[2018-09-28] MEDS: HYDROCODONE/ACETAMINOPHEN 10/325MG TABLET PO PRN (22:33)
[2018-09-29] VITALS: BP 127/57
[2018-09-29] MEDS: SODIUM CHLORIDE 0.45% 1,000 ML IV SCH ×2 (01:06→17:19)
[2018-09-29 04:00] VITALS: BP 133/67
[2018-09-29] MEDS: DEXAMETHASONE 4MG/ML 1ML VIAL IV SCH (05:04)
[2018-09-29] MEDS: HYDROCODONE/ACETAMINOPHEN 10/325MG TABLET PO PRN ×2 (05:05→21:57)
[2018-09-29] MEDS: BLOOD SUGAR DIAGNOSTIC STRIP TEST SCH ×4 (05:11→21:00)
[2018-09-29] MEDS: INSULIN LISPRO 100 UNITS/ML SUBCUT SCH ×5 (07:40→21:00)
[2018-09-29 08:00] VITALS: BP 146/62
[2018-09-29] MEDS: GLIPIZIDE 5MG XL TABLET PO SCH (08:10)
[2018-09-29] MEDS: FAMOTIDINE 20MG TABLET PO SCH (09:00)
[2018-09-29] MEDS: CEFTRIAXONE 1 G PREMIX 50 ML IV SCH (09:00)
[2018-09-29] MEDS: METOPROLOL TARTRATE 25MG TABLET PO SCH (09:00)
[2018-09-29] MEDS: LIDOCAINE 5% PATCH TOP SCH ×4 (09:00→11:59)
[2018-09-29] MEDS: DOCUSATE SODIUM 250MG CAPSULE PO SCH (09:00)
[2018-09-29] MEDS: ASPIRIN 81MG TABLET PO SCH (09:00)
[2018-09-29] MEDS: TAMSULOSIN HCL 0.4MG SR CAPSULE PO SCH (09:00)
[2018-09-29 09:48] LABS: HEMATOCRIT. 31.3 % (42.0-52.0); MEAN CORPUSCULAR HEMOGLOBIN 25.2 pg (28.0-32.0); MEAN CORPUSCULAR VOLUME 78.6 fL (80.0-94.0); MEAN PLATELET VOLUME 7.8 fl (7.4-10.4); PLATELET 225 x1000/uL (130-400); RED BLOOD CELL COUNT 3.98 mill/uL (4.7-6.1); RED CELL DISTRIBUTION WIDTH 16.4 % (11.6-14.6)
[2018-09-29 09:56] LABS: CHLORIDE 103 mEq/L (98-107)
[2018-09-29] MEDS: APIXABAN 2.5 MG TABLET PO SCH ×2 (10:00→21:55)
[2018-09-29] MEDS: INSULIN GLARGINE UD 100 UNITS/ML SYR SUBCUT SCH ×2 (10:00→22:39)
[2018-09-29] MEDS: VANCOMYCIN 1250MG in DEXTROSE 5% WATER 250ML IV SCH (10:00)
[2018-09-29 12:00] VITALS: BP 115/78
[2018-09-29] MEDS: HYDROCODONE/ACETAMINOPHEN 5/325MG TABLET PO PRN (12:20)
[2018-09-29] MEDS: NIFEDIPINE XL 30MG TAB PO SCH (12:22)
[2018-09-29] MEDS: AZITHROMYCIN 500 MG TABLET PO SCH (12:23)
[2018-09-29] MEDS ORDERED: BISACODYL 10MG SUPP PR PRN (13:15)
[2018-09-29] MEDS ORDERED: NA PHOS,M-B/NA PHOS,DI-BA ENEMA 118ML PR SCH (13:15)
[2018-09-29 16:00] VITALS: BP 113/49
[2018-09-29 16:50] LABS: PLATELET ESTIMATE NORMAL
[2018-09-29] MEDS: LACTULOSE 20G/30ML UDC PO SCH ×3 (17:00→21:58)
[2018-09-29] MEDS: DOCUSATE SODIUM 100MG CAPSULE PO SCH (17:08)
[2018-09-29 20:00] VITALS: BP 133/57
[2018-09-29] MEDS ORDERED: POLYETHYLENE GLYCOL 3350 (17GM) 1 DOSE PACK PO SCH (21:00)
[2018-09-29] MEDS: DEXAMETHASONE 2MG TABLET PO SCH (21:55)
[2018-09-29] MEDS: ATORVASTATIN CALCIUM 10MG TABLET PO SCH (21:55)
[2018-09-30] VITALS: BP 154/63
[2018-09-30] MEDS: CEFEPIME 2,000 MG in DEXT 5% WATER 100 ML IV SCH ×2 (00:17→11:38)
[2018-09-30] MEDS: VANCOMYCIN 1 G PREMIX 200 ML IV SCH ×2 (00:17→11:38)
[2018-09-30 04:00] VITALS: BP 139/60
[2018-09-30] MEDS: HYDROCODONE/ACETAMINOPHEN 5/325MG TABLET PO PRN ×2 (05:13→11:38)
[2018-09-30 06:57] LABS: HEMATOCRIT. 30.5 % (42.0-52.0); HEMOGLOBIN. 9.9 g/dL (14.0-18.0); MEAN CORPUSCULAR HEMOGLOBIN 25.6 pg (28.0-32.0); MEAN PLATELET VOLUME 7.8 fl (7.4-10.4); PLATELET 241 x1000/uL (130-400); RED BLOOD CELL COUNT 3.86 mill/uL (4.7-6.1); RED CELL DISTRIBUTION WIDTH 16.4 % (11.6-14.6)
[2018-09-30] MEDS: INSULIN LISPRO 100 UNITS/ML SUBCUT SCH ×4 (07:40→12:55)
[2018-09-30] MEDS: BLOOD SUGAR DIAGNOSTIC STRIP TEST SCH ×2 (07:56→11:41)
[2018-09-30 08:00] VITALS: BP 124/63
[2018-09-30 08:55] LABS: CHLORIDE 103 mEq/L (98-107)
[2018-09-30] MEDS ORDERED: NA PHOS,M-B/NA PHOS,DI-BA ENEMA 118ML PR PRN (09:00)
[2018-09-30] MEDS: APIXABAN 2.5 MG TABLET PO SCH (09:10)
[2018-09-30] MEDS: GLIPIZIDE 5MG XL TABLET PO SCH (09:10)
[2018-09-30] MEDS: INSULIN GLARGINE UD 100 UNITS/ML SYR SUBCUT SCH (09:12)
[2018-09-30] MEDS: DEXAMETHASONE 2MG TABLET PO SCH (09:13)
[2018-09-30] MEDS: FAMOTIDINE 20MG TABLET PO SCH (09:13)
[2018-09-30] MEDS: TAMSULOSIN HCL 0.4MG SR CAPSULE PO SCH (09:13)
[2018-09-30] MEDS: DOCUSATE SODIUM 100MG CAPSULE PO SCH ×2 (09:14→16:03)
[2018-09-30] MEDS: METOPROLOL TARTRATE 25MG TABLET PO SCH (09:14)
[2018-09-30] MEDS: ASPIRIN 81MG TABLET PO SCH (09:14)
[2018-09-30] MEDS: LIDOCAINE 5% PATCH TOP SCH ×2 (09:41→09:42)
[2018-09-30] MEDS: SODIUM CHLORIDE 0.45% 1,000 ML IV SCH (09:55)
[2018-09-30 10:21] LABS: PLATELET ESTIMATE NORMAL
[2018-09-30] MEDS: NIFEDIPINE XL 30MG TAB PO SCH (11:38)
[2018-09-30 12:00] VITALS: BP 132/61
[2018-09-30] MEDS: HYDROCODONE/ACETAMINOPHEN 10/325MG TABLET PO PRN (14:15)
[2018-09-30] MEDS ORDERED: PREGABALIN 50 MG CAPSULE PO SCH (15:30)
[2018-09-30] MEDS ORDERED: CELECOXIB 200MG CAPSULE PO SCH (15:30)
[2018-09-30 16:25] VITALS: BP 154/51
[2018-09-30 17:00] VITALS: BP 146/51
[2018-09-30] MEDS ORDERED: METHYLPREDNISOLONE SOD SUCC 40 MG/ML VIAL IV SCH (22:00)
[2018-10-01] MEDS ORDERED: VANCOMYCIN 1500MG in DEXTROSE 5% WATER 250ML IV SCH (08:00)
[2018-10-01] MEDS ORDERED: PREGABALIN 75MG CAPSULE PO SCH (09:00)
== END 2018-09-30 18:00 | DRG 871 ==
LOC: ER 11:37 → 5WST 13:04 → ENRESERV 15:48 → 5WST 18:00 → 7WST 09-23 20:24
PROVIDERS: ADMIT Internal Medicine; ATTEND Internal Medicine
DX: A41.9 Sepsis, unspecified organism (principal); G82.50 Quadriplegia, unspecified; J18.9 Pneumonia, unspecified organism; N17.9 Acute kidney failure, unspecified; E44.0 Moderate protein-calorie malnutrition; N39.0 Urinary tract infection, site not specified; I13.0 Hypertensive heart and chronic kidney disease with heart failure and stage 1 through stage 4 chronic kidney disease, or unspecified chronic kidney disease; J98.11 Atelectasis; K56.609 Unspecified intestinal obstruction, unspecified as to partial versus complete obstruction; M48.56XA Collapsed vertebra, not elsewhere classified, lumbar region, initial encounter for fracture; M62.82 Rhabdomyolysis; E87.5 Hyperkalemia; M48.02 Spinal stenosis, cervical region; M48.061 Spinal stenosis, lumbar region without neurogenic claudication; D64.9 Anemia, unspecified; D72.810 Lymphocytopenia; E11.22 Type 2 diabetes mellitus with diabetic chronic kidney disease; E11.65 Type 2 diabetes mellitus with hyperglycemia; E78.5 Hyperlipidemia, unspecified; E86.9 Volume depletion, unspecified; E87.8 Other disorders of electrolyte and fluid balance, not elsewhere classified; G89.4 Chronic pain syndrome; I25.10 Atherosclerotic heart disease of native coronary artery without angina pectoris; I35.0 Nonrheumatic aortic (valve) stenosis; I48.91 Unspecified atrial fibrillation; I50.9 Heart failure, unspecified; K80.20 Calculus of gallbladder without cholecystitis without obstruction; M19.90 Unspecified osteoarthritis, unspecified site; M35.3 Polymyalgia rheumatica; M47.816 Spondylosis without myelopathy or radiculopathy, lumbar region; M48.04 Spinal stenosis, thoracic region; M48.07 Spinal stenosis, lumbosacral region; M51.34 Other intervertebral disc degeneration, thoracic region; M51.36 Other intervertebral disc degeneration, lumbar region; M60.9 Myositis, unspecified; N18.9 Chronic kidney disease, unspecified; Z79.01 Long term (current) use of anticoagulants; Z82.49 Family history of ischemic heart disease and other diseases of the circulatory system; Z95.1 Presence of aortocoronary bypass graft; Z95.2 Presence of prosthetic heart valve; Z68.31 Body mass index [BMI] 31.0-31.9, adult
CPT/HCPCS: 36415; 70551; 71045; 72141; 72146; 72148; 73562; 74176; 76770; 80048; 80061; 80202; 82140; 82550; 82728; 82962; 83036; 83540; 83550; 84100; 84145; 84550; 85651; 86140; 86256; 90686; 92523; 92610; 93005; 93970; 96361; 96365; 96366; 96375; 97162; 97530; 99285; C1893; J0692; J0696; J1100; J1815; J1940; J2270; J2405; J3370; J7030; J7060; J8540

== ENCOUNTER 2020-01-21 18:21 | Inpatient (IN) | payer MEDICARE, MEDICAID ==
[~2020-01-21] VITALS: Ht 172.7 cm; Wt 81.6 kg
[~2020-01-21 18:21] MED LIST changes: +AMLO5TAB88 PO; -CHOL20004 PO; -DOCU-150 PO; +FAMO20TA8 PO; -GLIP10TA10 PO; -LEVO500T2 PO; -METR250T PO; +NAPR-677 PO; +OMEP20CA14 PO; +RISP05 PO; -TRAM50TA3 PO; -VITAMIN D2 PO
[2020-01-21] MEDS ORDERED: VANCOMYCIN 1 G PREMIX 200 ML IV SCH (19:00)
[2020-01-21] MEDS ORDERED: SODIUM CHLORIDE 0.9% 1000ML BAG (SEPSIS BOLUS) IV ONE (19:00)
[2020-01-21] MEDS ORDERED: PIPERACILLIN/TAZ 3.375G PREMIX 50 ML IV ONE (19:00)
[2020-01-21 20:38] LABS: EOSINOPHILS % 4.7 % (0.0-5.0); HEMATOCRIT. 24.3 % (42.0-52.0); HEMOGLOBIN. 8.1 g/dL (14.0-18.0); LYMPHOCYTES % 22.5 % (20.0-50.0); MEAN CORPUSCULAR HEMOGLOBIN 27.2 pg (28.0-32.0); MEAN CORPUSCULAR VOLUME 81.6 fL (80.0-94.0); MEAN PLATELET VOLUME 6.9 fl (7.4-10.4); MONOCYTES % 9.1 % (2.0-8.0); NEUTROPHILS % 62.7 % (40.0-76.0); PLATELET 273 x1000/uL (130-400); RED BLOOD CELL COUNT 2.98 mill/uL (4.7-6.1); RED CELL DISTRIBUTION WIDTH 16.6 % (11.6-14.6)
[2020-01-21 20:43] LABS: CHLORIDE 108 mEq/L (98-107)
[2020-01-21] MEDS ORDERED: FUROSEMIDE 40MG/4ML VIAL IVP ONE (21:00)
[2020-01-21] MEDS ORDERED: ASPIRIN 300MG SUPP PR ONE (21:00)
[2020-01-22 00:43] LABS: CLARITY URINE CLEAR (CLEAR); COLOR URINE YELLOW (YELLOW); KETONES URINE NEGATIVE (NEGATIVE); LEUKOCYTE ESTERASE URINE 2+ (NEGATIVE); NITRITE URINE NEGATIVE (NEGATIVE); OCCULT BLOOD URINE 2+ (NEGATIVE); PROTEIN URINE NEGATIVE (NEGATIVE); SPECIFIC GRAVITY URINE 1.006 (1.005-1.030); UROBILINOGEN URINE 0.2 E.U./dL (0.2-1.0)
[2020-01-22] MEDS: APIXABAN 5 MG TABLET PO SCH ×4 (01:00→18:01)
[2020-01-22] MEDS: ATORVASTATIN CALCIUM 40MG TABLET PO SCH ×2 (01:00→21:41)
[2020-01-22] MEDS ORDERED: RISPERIDONE 0.5MG TABLET PO SCH (01:00)
[2020-01-22] MEDS ORDERED: NIFEDIPINE XL 30MG TAB PO SCH (01:00)
[2020-01-22] MEDS: OMEPRAZOLE 20MG CAPSULE EXTENDED RELEASE PO SCH (01:00)
[2020-01-22] MEDS ORDERED: ASPIRIN 325MG TABLET PO SCH (01:00)
[2020-01-22] MEDS ORDERED: PIPERACILLIN/TAZ 3.375G PREMIX 50 ML IV SCH (02:00)
[2020-01-22] MEDS ORDERED: VANCOMYCIN 1 G PREMIX 200 ML IV SCH (05:00)
[2020-01-22] MEDS ORDERED: ONDANSETRON HCL 4MG/2ML INJ IV PRN (09:15)
[2020-01-22] MEDS ORDERED: FUROSEMIDE 40MG/4ML VIAL IVP SCH (09:15)
[2020-01-22 10:00] VITALS: BP 113/60
[2020-01-22 12:00] VITALS: BP 124/61
[2020-01-22] MEDS: CEFEPIME 1,000 MG in DEXTROSE 5% WATER 50 ML IV SCH (13:30)
[2020-01-22 16:00] VITALS: BP 134/76
[2020-01-22] MEDS: FUROSEMIDE 40MG TABLET PO SCH ×2 (17:15→18:00)
[2020-01-22] MEDS ORDERED: VANCOMYCIN HCL 750 MG in DEXT 5% WATER 250 ML IV SCH (18:00)
[2020-01-22 20:00] VITALS: BP 146/76
[2020-01-22] MEDS: RISPERIDONE 0.5MG TABLET PO SCH (21:41)
[2020-01-22] MEDS: AMLODIPINE 5MG TABLET PO SCH (21:41)
[2020-01-22] MEDS: LISINOPRIL 20MG TABLET PO SCH (21:41)
[2020-01-22] MEDS: IRON SUCROSE COMPLEX 100 MG/5 ML ML IV SCH (21:43)
[2020-01-22] MEDS: LORAZEPAM 2MG/ML CPJ IV PRN (23:13)
[2020-01-23] VITALS: BP 130/62
[2020-01-23] MEDS: DIPHENHYDRAMINE 50MG/ML VIAL IV PRN (00:56)
[2020-01-23] MEDS: CEFEPIME 1,000 MG in DEXTROSE 5% WATER 50 ML IV SCH ×2 (02:40→15:50)
[2020-01-23 04:00] VITALS: BP 136/62
[2020-01-23 06:07] LABS: BASOPHILS % 0.5 % (0.0-2.0); EOSINOPHILS % 3.4 % (0.0-5.0); HEMATOCRIT. 26.4 % (42.0-52.0); HEMOGLOBIN. 8.8 g/dL (14.0-18.0); LYMPHOCYTES % 19.3 % (20.0-50.0); MEAN CORPUSCULAR HEMOGLOBIN 27.5 pg (28.0-32.0); MEAN CORPUSCULAR VOLUME 82.6 fL (80.0-94.0); NEUTROPHILS % 66.8 % (40.0-76.0); PLATELET 245 x1000/uL (130-400); RED BLOOD CELL COUNT 3.19 mill/uL (4.7-6.1); RED CELL DISTRIBUTION WIDTH 17.3 % (11.6-14.6)
[2020-01-23] MEDS: FUROSEMIDE 40MG TABLET PO SCH (06:19)
[2020-01-23] MEDS: OMEPRAZOLE 20MG CAPSULE EXTENDED RELEASE PO SCH (06:19)
[2020-01-23 07:05] LABS: CHLORIDE 110 mEq/L (98-107)
[2020-01-23 08:18] VITALS: BP 147/52
[2020-01-23] MEDS: METOPROLOL TARTRATE 25MG TABLET PO SCH ×2 (09:00→10:01)
[2020-01-23] MEDS: AMLODIPINE 5MG TABLET PO SCH ×2 (09:00→10:00)
[2020-01-23] MEDS: RISPERIDONE 0.5MG TABLET PO SCH ×2 (09:00→10:01)
[2020-01-23] MEDS: LISINOPRIL 20MG TABLET PO SCH ×2 (09:00→10:01)
[2020-01-23] MEDS: APIXABAN 5 MG TABLET PO SCH ×2 (10:00→17:00)
[2020-01-23] MEDS ORDERED: FUROSEMIDE 40MG/4ML VIAL IVP SCH (10:00)
[2020-01-23] MEDS ORDERED: FUROSEMIDE 40MG TABLET PO SCH (10:00)
[2020-01-23 12:19] VITALS: BP 137/68
[2020-01-23 16:04] VITALS: BP 127/55
[2020-01-23] MEDS ORDERED: IPRATROPIUM/ALBUTEROL 0.5-3(2.5)MG/3ML NEB HHN PRN (16:30)
[2020-01-23] MEDS: DEXT 5%/0.45% NACL 1000ML 1,000 ML IV SCH (17:07)
[2020-01-23] MEDS: FUROSEMIDE 40MG/4ML VIAL IVP SCH (18:49)
[2020-01-23 20:00] VITALS: BP 149/72
[2020-01-23] MEDS: ATORVASTATIN CALCIUM 40MG TABLET PO SCH ×3 (21:00→22:15)
[2020-01-23] MEDS: IRON SUCROSE COMPLEX 100 MG/5 ML ML IV SCH (21:52)
[2020-01-23] MEDS: ACETAMINOPHEN 325MG TABLET PO PRN (23:03)
[2020-01-23] MEDS: LORAZEPAM 2MG/ML CPJ IV PRN (23:10)
[2020-01-24] VITALS: BP 144/79
[2020-01-24] MEDS: DIPHENHYDRAMINE 50MG/ML VIAL IV PRN ×2 (01:06→21:37)
[2020-01-24] MEDS: CEFEPIME 1,000 MG in DEXTROSE 5% WATER 50 ML IV SCH ×2 (03:16→15:43)
[2020-01-24 04:00] VITALS: BP 135/66
[2020-01-24 06:09] LABS: BASOPHILS % 0.6 % (0.0-2.0); EOSINOPHILS % 3.8 % (0.0-5.0); HEMATOCRIT. 28.3 % (42.0-52.0); HEMOGLOBIN. 9.2 g/dL (14.0-18.0); LYMPHOCYTES % 20.6 % (20.0-50.0); MEAN CORPUSCULAR HEMOGLOBIN 26.8 pg (28.0-32.0); MEAN CORPUSCULAR VOLUME 82.3 fL (80.0-94.0); MEAN PLATELET VOLUME 7.3 fl (7.4-10.4); MONOCYTES % 11.1 % (2.0-8.0); NEUTROPHILS % 63.9 % (40.0-76.0); PLATELET 259 x1000/uL (130-400); RED BLOOD CELL COUNT 3.44 mill/uL (4.7-6.1); RED CELL DISTRIBUTION WIDTH 18.3 % (11.6-14.6)
[2020-01-24 06:19] LABS: CHLORIDE 106 mEq/L (98-107)
[2020-01-24] MEDS: FUROSEMIDE 40MG/4ML VIAL IVP SCH ×2 (06:39→17:22)
[2020-01-24] MEDS: OMEPRAZOLE 20MG CAPSULE EXTENDED RELEASE PO SCH ×2 (06:39→06:45)
[2020-01-24] MEDS: AMLODIPINE 5MG TABLET PO SCH (08:57)
[2020-01-24] MEDS: LISINOPRIL 20MG TABLET PO SCH (08:58)
[2020-01-24] MEDS: APIXABAN 5 MG TABLET PO SCH ×2 (08:58→17:22)
[2020-01-24] MEDS: RISPERIDONE 0.5MG TABLET PO SCH (08:58)
[2020-01-24] MEDS ORDERED: KCL 20MEQ/100ML PREMIX 100 ML IV SCH (09:00)
[2020-01-24] MEDS: METOPROLOL TARTRATE 25MG TABLET PO SCH (11:37)
[2020-01-24 12:00] VITALS: BP 114/63
[2020-01-24] MEDS: ACETAMINOPHEN 325MG TABLET PO PRN (13:19)
[2020-01-24 16:00] VITALS: BP 94/60
[2020-01-24] MEDS: DEXT 5%/0.45% NACL 1000ML 1,000 ML IV SCH (17:23)
[2020-01-24 20:00] VITALS: BP 125/66
[2020-01-24] MEDS: IRON SUCROSE COMPLEX 100 MG/5 ML ML IV SCH (21:37)
[2020-01-24] MEDS: ATORVASTATIN CALCIUM 40MG TABLET PO SCH (21:37)
[2020-01-25] VITALS: BP 134/63
[2020-01-25] MEDS: CEFEPIME 1,000 MG in DEXTROSE 5% WATER 50 ML IV SCH (03:11)
[2020-01-25] MEDS: DIPHENHYDRAMINE 50MG/ML VIAL IV PRN ×2 (03:19→10:52)
[2020-01-25 04:00] VITALS: BP 141/70
[2020-01-25 08:15] VITALS: BP 117/56
[2020-01-25] MEDS: APIXABAN 5 MG TABLET PO SCH (09:21)
[2020-01-25] MEDS: RISPERIDONE 0.5MG TABLET PO SCH (09:21)
[2020-01-25] MEDS: OMEPRAZOLE 20MG CAPSULE EXTENDED RELEASE PO SCH (09:22)
[2020-01-25] MEDS: AMLODIPINE 5MG TABLET PO SCH (09:22)
[2020-01-25 12:11] VITALS: BP 107/53
== END 2020-01-25 14:55 | DRG 987 ==
LOC: ER 18:21 → EDBEDREQTM 19:51 → EDBEDREQ 19:51 → EDBEDREQTM 19:53 → EDBEDREQ 19:53 → 6WST 22:02 → EDBEDREQ 22:04 → EDBEDREQTM 22:04 → ENRESERV 01-22 08:31
PROVIDERS: ADMIT Internal Medicine; ATTEND Internal Medicine
PROC: 0QBM0ZZ Excision of Left Tarsal, Open Approach (ICD-10-PCS; principal; 2020-01-24)
DX: E11.42 Type 2 diabetes mellitus with diabetic polyneuropathy (principal); L89.624 Pressure ulcer of left heel, stage 4; G93.41 Metabolic encephalopathy; E43 Unspecified severe protein-calorie malnutrition; N39.0 Urinary tract infection, site not specified; I48.20 Chronic atrial fibrillation, unspecified; I42.9 Cardiomyopathy, unspecified; M86.8X7 Other osteomyelitis, ankle and foot; E11.69 Type 2 diabetes mellitus with other specified complication; I11.0 Hypertensive heart disease with heart failure; E87.8 Other disorders of electrolyte and fluid balance, not elsewhere classified; E78.5 Hyperlipidemia, unspecified; D63.8 Anemia in other chronic diseases classified elsewhere; E11.649 Type 2 diabetes mellitus with hypoglycemia without coma; E87.6 Hypokalemia; F25.9 Schizoaffective disorder, unspecified; F03.90 Unspecified dementia, unspecified severity, without behavioral disturbance, psychotic disturbance, mood disturbance, and anxiety; I25.10 Atherosclerotic heart disease of native coronary artery without angina pectoris; I50.9 Heart failure, unspecified; Z79.01 Long term (current) use of anticoagulants; Z79.899 Other long term (current) drug therapy; Z95.1 Presence of aortocoronary bypass graft; Z68.27 Body mass index [BMI] 27.0-27.9, adult; Z74.01 Bed confinement status; Z87.891 Personal history of nicotine dependence; Z87.440 Personal history of urinary (tract) infections
CPT/HCPCS: 36415; 70551; 71045; 73620; 80048; 80053; 81003; 82140; 82962; 83605; 83880; 84145; 84484; 85025; 87106; 92610; 93005; 93306; 97165; 99285; J0692; J1200; J1940; J2060; J2543; J3370; J3480; J7030; J7060

== ENCOUNTER 2020-02-09 13:13 | Inpatient (IN) | payer MEDICARE, MEDICAID ==
[~2020-02-09] VITALS: Ht 182.9 cm; Wt 75.5 kg
[~2020-02-09 13:13] MED LIST changes: -BAYER PO
[2020-02-09] MEDS ORDERED: PIPERACILLIN/TAZ 3.375G PREMIX 50 ML IV ONE (13:45)
[2020-02-09] MEDS ORDERED: VANCOMYCIN 1 G PREMIX 200 ML IV ONE (13:45)
[2020-02-09] MEDS ORDERED: SODIUM CHLORIDE 0.9% 1000ML BAG (SEPSIS BOLUS) IV ONE (13:45)
[2020-02-09 14:13] LABS: BASOPHILS % 0.7 % (0.0-2.0); EOSINOPHILS % 2.9 % (0.0-5.0); HEMATOCRIT. 27.8 % (42.0-52.0); HEMOGLOBIN. 9.2 g/dL (14.0-18.0); LYMPHOCYTES % 25.8 % (20.0-50.0); MEAN CORPUSCULAR HEMOGLOBIN 27.8 pg (28.0-32.0); MEAN CORPUSCULAR VOLUME 84.2 fL (80.0-94.0); MEAN PLATELET VOLUME 7.4 fl (7.4-10.4); MONOCYTES % 7.8 % (2.0-8.0); NEUTROPHILS % 62.8 % (40.0-76.0); PLATELET 170 x1000/uL (130-400); RED CELL DISTRIBUTION WIDTH 21.4 % (11.6-14.6)
[2020-02-09 14:21] LABS: CHLORIDE 108 mEq/L (98-107)
[2020-02-09 14:22] LABS: INR 1.3; PROTHROMBIN TIME 13.8 sec (9.6-11.0)
[2020-02-09] MEDS ORDERED: POTASSIUM CHLORIDE 20MEQ TABLET SR PO ONE (14:45)
[2020-02-09] MEDS ORDERED: POTASSIUM CHLORIDE INJ 40 MEQ in DEXT 5% WATER 250 ML IV ONE (14:45)
[2020-02-09] MEDS ORDERED: ONDANSETRON HCL 4MG/2ML INJ IV PRN (17:15)
[2020-02-09 17:27] LABS: CLARITY URINE CLOUDY (CLEAR); COLOR URINE YELLOW (YELLOW); KETONES URINE TRACE (NEGATIVE); LEUKOCYTE ESTERASE URINE 3+ (NEGATIVE); NITRITE URINE NEGATIVE (NEGATIVE); OCCULT BLOOD URINE 2+ (NEGATIVE); PH URINE 5.5 (4.5-8.0); PROTEIN URINE 2+ (NEGATIVE); SPECIFIC GRAVITY URINE 1.014 (1.005-1.030); UROBILINOGEN URINE 0.2 E.U./dL (0.2-1.0)
[2020-02-09 18:11] VITALS: BP 98/66
[2020-02-09 18:18] VITALS: BP 98/66
[2020-02-09 19:40] VITALS: BP 123/76
[2020-02-09] MEDS ORDERED: CEFEPIME 1,000 MG in DEXTROSE 5% WATER 50 ML IV SCH (20:30)
[2020-02-09] MEDS: SODIUM CHLORIDE 0.45% 1,000 ML IV SCH (21:55)
[2020-02-09 22:00] VITALS: BP 109/73
[2020-02-09] MEDS ORDERED: MAGNESIUM 2 G PREMIX 50 ML IV SCH (22:00)
[2020-02-09] MEDS: LORAZEPAM 2MG/ML CPJ IV PRN (23:35)
[2020-02-10] VITALS (20 sets, daily range): BP systolic 108–141; BP diastolic 58–75
[2020-02-10] MEDS: BLOOD SUGAR DIAGNOSTIC STRIP TEST SCH ×5 (00:43→20:14)
[2020-02-10] MEDS ORDERED: KCL 20MEQ/100ML PREMIX 100 ML IV NR (02:00)
[2020-02-10] MEDS: INSULIN LISPRO 100 UNITS/ML SUBCUT SCH ×4 (07:20→20:14)
[2020-02-10 07:58] LABS: BASOPHILS % 0.9 % (0.0-2.0); EOSINOPHILS % 3.5 % (0.0-5.0); HEMATOCRIT. 28.2 % (42.0-52.0); HEMOGLOBIN. 9.3 g/dL (14.0-18.0); LYMPHOCYTES % 17.3 % (20.0-50.0); MEAN CORPUSCULAR HEMOGLOBIN 27.6 pg (28.0-32.0); MEAN CORPUSCULAR VOLUME 83.6 fL (80.0-94.0); MEAN PLATELET VOLUME 7.3 fl (7.4-10.4); MONOCYTES % 10.4 % (2.0-8.0); NEUTROPHILS % 67.9 % (40.0-76.0); PLATELET 161 x1000/uL (130-400); RED BLOOD CELL COUNT 3.37 mill/uL (4.7-6.1); RED CELL DISTRIBUTION WIDTH 21.6 % (11.6-14.6)
[2020-02-10 08:03] LABS: CHLORIDE 111 mEq/L (98-107)
[2020-02-10] MEDS: RISPERIDONE 0.5MG TABLET PO SCH (09:18)
[2020-02-10] MEDS: ACETAMINOPHEN 325MG TABLET PO PRN (09:26)
[2020-02-10] MEDS ORDERED: POTASSIUM CHLORIDE INJ 40 MEQ in DEXT 5% WATER 250 ML IV NR (12:30)
[2020-02-10] MEDS: LORAZEPAM 2MG/ML CPJ IV PRN ×2 (13:30→20:10)
[2020-02-10] MEDS: SODIUM CHLORIDE 0.45% 1,000 ML IV SCH ×2 (13:32→20:14)
[2020-02-10] MEDS: DIPHENHYDRAMINE 50MG/ML VIAL IV PRN (16:13)
[2020-02-10] MEDS: ZINC SULFATE 220 MG ( 50 ) CAPSULE PO SCH (16:14)
[2020-02-10] MEDS: SODIUM HYPOCHLORITE (0.25%) 480ML SOLUTION (HALF STRENGTH) TOP SCH (16:14)
[2020-02-10] MEDS: ASCORBIC ACID 500 MG TABLET PO SCH (16:14)
[2020-02-10] MEDS: CEFEPIME 1,000 MG in DEXTROSE 5% WATER 50 ML IV SCH (22:28)
[2020-02-11] VITALS (13 sets, daily range): BP systolic 132–171; BP diastolic 50–115
[2020-02-11] MEDS: DIPHENHYDRAMINE 50MG/ML VIAL IV PRN (01:33)
[2020-02-11 06:50] LABS: EOSINOPHILS % 4.1 % (0.0-5.0); HEMATOCRIT. 30.5 % (42.0-52.0); LYMPHOCYTES % 16.6 % (20.0-50.0); MEAN CORPUSCULAR HEMOGLOBIN 27.4 pg (28.0-32.0); MEAN CORPUSCULAR VOLUME 83.5 fL (80.0-94.0); MEAN PLATELET VOLUME 7.6 fl (7.4-10.4); MONOCYTES % 9.8 % (2.0-8.0); NEUTROPHILS % 68.5 % (40.0-76.0); PLATELET 166 x1000/uL (130-400); RED BLOOD CELL COUNT 3.65 mill/uL (4.7-6.1); RED CELL DISTRIBUTION WIDTH 21.8 % (11.6-14.6)
[2020-02-11 06:53] LABS: CHLORIDE 111 mEq/L (98-107)
[2020-02-11] MEDS: BLOOD SUGAR DIAGNOSTIC STRIP TEST SCH ×4 (07:01→21:09)
[2020-02-11] MEDS: INSULIN LISPRO 100 UNITS/ML SUBCUT SCH ×4 (07:20→21:00)
[2020-02-11] MEDS: ZINC SULFATE 220 MG ( 50 ) CAPSULE PO SCH (07:47)
[2020-02-11] MEDS: RISPERIDONE 0.5MG TABLET PO SCH (07:47)
[2020-02-11] MEDS: SODIUM CHLORIDE 0.45% 1,000 ML IV SCH ×2 (07:47→21:12)
[2020-02-11] MEDS: ASCORBIC ACID 500 MG TABLET PO SCH (07:47)
[2020-02-11] MEDS: SODIUM HYPOCHLORITE (0.25%) 480ML SOLUTION (HALF STRENGTH) TOP SCH (09:00)
[2020-02-11] MEDS ORDERED: POTASSIUM CHLORIDE 20MEQ TABLET SR PO SCH (09:15)
[2020-02-11] MEDS: DEXTROSE 50% WATER 50ML SYRINGE IV PRN (17:55)
[2020-02-11] MEDS: APIXABAN 5 MG TABLET PO SCH (21:00)
[2020-02-11] MEDS: CEFEPIME 1,000 MG in DEXTROSE 5% WATER 50 ML IV SCH (21:12)
[2020-02-12] VITALS (14 sets, daily range): BP systolic 105–159; BP diastolic 32–83
[2020-02-12] MEDS: DEXTROSE 50% WATER 50ML SYRINGE IV PRN ×2 (04:38→17:24)
[2020-02-12] MEDS: BLOOD SUGAR DIAGNOSTIC STRIP TEST SCH ×4 (06:53→21:09)
[2020-02-12] MEDS: INSULIN LISPRO 100 UNITS/ML SUBCUT SCH ×4 (07:20→21:00)
[2020-02-12] MEDS: APIXABAN 5 MG TABLET PO SCH ×3 (09:00→21:00)
[2020-02-12] MEDS: ASCORBIC ACID 500 MG TABLET PO SCH (09:00)
[2020-02-12] MEDS: ZINC SULFATE 220 MG ( 50 ) CAPSULE PO SCH (09:00)
[2020-02-12] MEDS: SODIUM CHLORIDE 0.45% 1,000 ML IV SCH (09:14)
[2020-02-12] MEDS: SODIUM HYPOCHLORITE (0.25%) 480ML SOLUTION (HALF STRENGTH) TOP SCH (09:14)
[2020-02-12 12:22] LABS: BASOPHILS % 0.7 % (0.0-2.0); EOSINOPHILS % 3.6 % (0.0-5.0); HEMATOCRIT. 28.8 % (42.0-52.0); HEMOGLOBIN. 9.4 g/dL (14.0-18.0); MEAN CORPUSCULAR HEMOGLOBIN 27.3 pg (28.0-32.0); MEAN CORPUSCULAR VOLUME 83.5 fL (80.0-94.0); MEAN PLATELET VOLUME 7.3 fl (7.4-10.4); MONOCYTES % 13.7 % (2.0-8.0); PLATELET 148 x1000/uL (130-400); RED BLOOD CELL COUNT 3.45 mill/uL (4.7-6.1); RED CELL DISTRIBUTION WIDTH 21.8 % (11.6-14.6)
[2020-02-12 12:37] LABS: CHLORIDE 112 mEq/L (98-107)
[2020-02-12] MEDS: DIPHENHYDRAMINE 50MG/ML VIAL IV PRN (19:26)
[2020-02-12] MEDS: CEFEPIME 1,000 MG in DEXTROSE 5% WATER 50 ML IV SCH (22:26)
[2020-02-12] MEDS: LORAZEPAM 2MG/ML CPJ IV PRN (23:41)
[2020-02-13] VITALS (13 sets, daily range): BP systolic 111–170; BP diastolic 55–88
[2020-02-13] MEDS: SODIUM CHLORIDE 0.45% 1,000 ML IV SCH (02:55)
[2020-02-13] MEDS: BLOOD SUGAR DIAGNOSTIC STRIP TEST SCH ×4 (06:33→20:27)
[2020-02-13] MEDS: INSULIN LISPRO 100 UNITS/ML SUBCUT SCH (07:20)
[2020-02-13] MEDS: ASCORBIC ACID 500 MG TABLET PO SCH (09:00)
[2020-02-13] MEDS: ZINC SULFATE 220 MG ( 50 ) CAPSULE PO SCH (09:00)
[2020-02-13] MEDS: APIXABAN 5 MG TABLET PO SCH (09:00)
[2020-02-13] MEDS: SODIUM HYPOCHLORITE (0.25%) 480ML SOLUTION (HALF STRENGTH) TOP SCH (09:31)
[2020-02-13] MEDS: DEXT 5%/0.45% NACL 1000ML 1,000 ML IV SCH (11:25)
[2020-02-13] MEDS: PANTOPRAZOLE SODIUM 40 MG/VIAL IV SCH (13:14)
[2020-02-13 16:16] LABS: TOTAL IRON BINDING CAPACITY 151 ug/dL (250-450)
[2020-02-13] MEDS: PHYTONADIONE 10MG/ML AMP SUBCUT SCH (18:18)
[2020-02-13] MEDS ORDERED: POTASSIUM CHLORIDE INJ 40 MEQ in DEXT 5% WATER 250 ML IV NR (19:00)
[2020-02-13] MEDS: DIPHENHYDRAMINE 50MG/ML VIAL IV PRN (19:46)
[2020-02-13] MEDS: CEFEPIME 1,000 MG in DEXTROSE 5% WATER 50 ML IV SCH (21:11)
[2020-02-13] MEDS: LORAZEPAM 2MG/ML CPJ IV PRN (21:12)
[2020-02-14] VITALS (15 sets, daily range): BP systolic 137–167; BP diastolic 56–99
[2020-02-14] MEDS: DEXT 5%/0.45% NACL 1000ML 1,000 ML IV SCH ×2 (02:06→16:11)
[2020-02-14] MEDS: PHYTONADIONE 10MG/ML AMP SUBCUT SCH (04:40)
[2020-02-14 06:45] LABS: HEMATOCRIT 29.5 % (42.0-52.0); HEMOGLOBIN 9.8 g/dL (14.0-18.0); INR 1.2; MEAN CORPUSCULAR HEMOGLOBIN 27.3 pg (28.0-32.0); MEAN CORPUSCULAR VOLUME 82.7 fL (80.0-94.0); PLATELET 143 x1000/uL (130-400); PROTHROMBIN TIME 12.5 sec (9.6-11.0); RED BLOOD CELL COUNT 3.57 mill/uL (4.7-6.1); RED CELL DISTRIBUTION WIDTH 21.5 % (11.6-14.6)
[2020-02-14 06:48] LABS: CHLORIDE 110 mEq/L (98-107)
[2020-02-14] MEDS: BLOOD SUGAR DIAGNOSTIC STRIP TEST SCH ×4 (07:45→21:49)
[2020-02-14] MEDS: ZINC SULFATE 220 MG ( 50 ) CAPSULE PO SCH (09:00)
[2020-02-14] MEDS: ASCORBIC ACID 500 MG TABLET PO SCH (09:00)
[2020-02-14] MEDS: DIPHENHYDRAMINE 50MG/ML VIAL IV PRN ×2 (09:53→22:21)
[2020-02-14] MEDS: PANTOPRAZOLE SODIUM 40 MG/VIAL IV SCH (09:53)
[2020-02-14] MEDS: SODIUM HYPOCHLORITE (0.25%) 480ML SOLUTION (HALF STRENGTH) TOP SCH (09:54)
[2020-02-14] MEDS: CEFEPIME 1,000 MG in DEXTROSE 5% WATER 50 ML IV SCH (21:49)
[2020-02-15] VITALS (18 sets, daily range): BP systolic 134–174; BP diastolic 63–148
[2020-02-15] MEDS: LORAZEPAM 2MG/ML CPJ IV PRN ×2 (02:45→13:17)
[2020-02-15] MEDS: DEXT 5%/0.45% NACL 1000ML 1,000 ML IV SCH ×2 (06:24→16:31)
[2020-02-15] MEDS: BLOOD SUGAR DIAGNOSTIC STRIP TEST SCH ×4 (06:29→21:41)
[2020-02-15] MEDS: FAMOTIDINE 20MG/2ML VIAL IV SCH ×2 (08:14→21:15)
[2020-02-15] MEDS: SODIUM HYPOCHLORITE (0.25%) 480ML SOLUTION (HALF STRENGTH) TOP SCH (08:14)
[2020-02-15] MEDS: DIPHENHYDRAMINE 50MG/ML VIAL IV PRN (08:14)
[2020-02-15] MEDS: ZINC SULFATE 220 MG ( 50 ) CAPSULE PO SCH (08:17)
[2020-02-15] MEDS: ASCORBIC ACID 500 MG TABLET PO SCH (08:17)
[2020-02-15] MEDS ORDERED: CEFAZOLIN 1000MG PREMIX 50 ML IV NR (10:15)
[2020-02-15] MEDS ORDERED: FENTANYL CITRATE/PF 50MCG/ML 2ML VIAL ONE (10:59)
[2020-02-15] MEDS ORDERED: MIDAZOLAM HCL 5 MG/5 ML VIAL ONE (10:59)
[2020-02-15] MEDS ORDERED: MIDAZOLAM HCL 5 MG/5 ML VIAL IV PRN (11:00)
[2020-02-15] MEDS ORDERED: FENTANYL CITRATE/PF 50MCG/ML 2ML VIAL IV PRN (11:01)
[2020-02-15] MEDS ORDERED: CEFAZOLIN 1000MG PREMIX 50 ML IV ONE (11:02)
[2020-02-15] MEDS ORDERED: CLONIDINE 0.1MG TABLET PO PRN ×2 (20:30→20:45)
[2020-02-15] MEDS: ACETAMINOPHEN 325MG TABLET PO PRN (21:59)
[2020-02-16] VITALS (13 sets, daily range): BP systolic 110–157; BP diastolic 41–86
[2020-02-16] MEDS: BLOOD SUGAR DIAGNOSTIC STRIP TEST SCH ×3 (05:55→12:25)
[2020-02-16] MEDS: DEXT 5%/0.45% NACL 1000ML 1,000 ML IV SCH (05:55)
[2020-02-16] MEDS: METOCLOPRAMIDE HCL 10MG/2ML VIAL IV SCH ×2 (06:05→12:21)
[2020-02-16 06:43] LABS: CHLORIDE 105 mEq/L (98-107)
[2020-02-16] MEDS: ASCORBIC ACID 500 MG TABLET PO SCH (08:16)
[2020-02-16] MEDS: ZINC SULFATE 220 MG ( 50 ) CAPSULE PO SCH (08:18)
[2020-02-16] MEDS: FAMOTIDINE 20MG/2ML VIAL IV SCH (08:18)
[2020-02-16] MEDS: SODIUM HYPOCHLORITE (0.25%) 480ML SOLUTION (HALF STRENGTH) TOP SCH (08:18)
[2020-02-16 08:39] LABS: BASOPHILS % 0.4 % (0.0-2.0); EOSINOPHILS % 1.3 % (0.0-5.0); HEMATOCRIT. 31.1 % (42.0-52.0); HEMOGLOBIN. 10.4 g/dL (14.0-18.0); LYMPHOCYTES % 17.1 % (20.0-50.0); MEAN CORPUSCULAR HEMOGLOBIN 27.5 pg (28.0-32.0); MEAN CORPUSCULAR VOLUME 82.7 fL (80.0-94.0); MEAN PLATELET VOLUME 7.6 fl (7.4-10.4); MONOCYTES % 10.2 % (2.0-8.0); RED BLOOD CELL COUNT 3.77 mill/uL (4.7-6.1); RED CELL DISTRIBUTION WIDTH 21.6 % (11.6-14.6)
[2020-02-16 08:48] LABS: PLATELET 124 x1000/uL (130-400)
[2020-02-16] MEDS ORDERED: POTASSIUM CHLORIDE 20MEQ TABLET SR PO NR (10:00)
== END 2020-02-16 17:35 | DRG 391 ==
LOC: ER 13:13 → 3WST 14:43 → EDBEDREQTM 14:52 → EDBEDREQ 14:52 → ENRESERV 15:37
PROVIDERS: ADMIT Internal Medicine; ATTEND Internal Medicine
PROC: 0DB78ZX Excision of Stomach, Pylorus, Via Natural or Artificial Opening Endoscopic, Diagnostic (ICD-10-PCS; principal; 2020-02-15)
PROC: 0DH63UZ Insertion of Feeding Device into Stomach, Percutaneous Approach (ICD-10-PCS; 2020-02-15)
DX: R13.10 Dysphagia, unspecified (principal); L89.624 Pressure ulcer of left heel, stage 4; E43 Unspecified severe protein-calorie malnutrition; M86.8X6 Other osteomyelitis, lower leg; N39.0 Urinary tract infection, site not specified; I48.20 Chronic atrial fibrillation, unspecified; I42.9 Cardiomyopathy, unspecified; G93.40 Encephalopathy, unspecified; K29.70 Gastritis, unspecified, without bleeding; R62.7 Adult failure to thrive; I95.9 Hypotension, unspecified; E87.6 Hypokalemia; F03.90 Unspecified dementia, unspecified severity, without behavioral disturbance, psychotic disturbance, mood disturbance, and anxiety; I10 Essential (primary) hypertension; F25.9 Schizoaffective disorder, unspecified; E78.5 Hyperlipidemia, unspecified; E11.42 Type 2 diabetes mellitus with diabetic polyneuropathy; K21.9 Gastro-esophageal reflux disease without esophagitis; K29.80 Duodenitis without bleeding; E78.00 Pure hypercholesterolemia, unspecified; E83.51 Hypocalcemia; D63.8 Anemia in other chronic diseases classified elsewhere; D50.9 Iron deficiency anemia, unspecified; Z74.01 Bed confinement status; Z87.19 Personal history of other diseases of the digestive system; Z87.440 Personal history of urinary (tract) infections; Z87.891 Personal history of nicotine dependence; Z78.1 Physical restraint status; Z68.22 Body mass index [BMI] 22.0-22.9, adult
CPT/HCPCS: 36415; 71045; 73630; 80048; 80053; 81003; 82728; 82962; 83540; 83550; 83605; 83735; 84132; 84145; 84484; 85025; 85027; 85651; 86140; 88305; 88313; 92610; 93005; 99285; C9113; J0690; J0692; J1200; J1815; J2060; J2250; J2543; J2765; J3010; J3370; J3430; J3475; J3480; J3490; J7030; J7060

== ENCOUNTER 2020-03-02 14:33 | Inpatient (IN) | payer MEDICARE, MEDICAID ==
[~2020-03-02] VITALS: Ht 182.9 cm; Wt 73.5 kg
[~2020-03-02 14:33] MED LIST changes: -HYDR25TA PO; -NAPR-677 PO; -NIFE30TA83 PO
[2020-03-02] MEDS ORDERED: SODIUM CHLORIDE 0.9% 1,000 ML IV ONE ×2 (14:42→15:15)
[2020-03-02 15:45] LABS: MEAN CORPUSCULAR HEMOGLOBIN 27.8 pg (28.0-32.0); MEAN CORPUSCULAR VOLUME 84.5 fL (80.0-94.0); MEAN PLATELET VOLUME 8.1 fl (7.4-10.4); PLATELET 151 x1000/uL (130-400); RED BLOOD CELL COUNT 2.27 mill/uL (4.7-6.1); RED CELL DISTRIBUTION WIDTH 22.2 % (11.6-14.6)
[2020-03-02 15:49] LABS: CHLORIDE 104 mEq/L (98-107)
[2020-03-02 15:52] LABS: HEMATOCRIT. 19.2 % (42.0-52.0); HEMOGLOBIN. 6.3 g/dL (14.0-18.0)
[2020-03-02 16:11] LABS: PLATELET ESTIMATE NORMAL
[2020-03-02] MEDS ORDERED: ACETAMINOPHEN 325MG TABLET PO PRN (19:15)
[2020-03-02 22:00] VITALS: BP 86/38
[2020-03-02 22:35] VITALS: BP 92/50
[2020-03-02] MEDS ORDERED: DEXTROSE 50% WATER 50ML SYRINGE IV PRN (23:15)
[2020-03-03] VITALS (14 sets, daily range): BP systolic 80–127; BP diastolic 27–84
[2020-03-03] MEDS: BLOOD SUGAR DIAGNOSTIC STRIP TEST SCH ×4 (00:50→17:01)
[2020-03-03] MEDS: CEFTRIAXONE 1 G PREMIX 50 ML IV SCH ×2 (00:50→23:06)
[2020-03-03] MEDS: AZITHROMYCIN 500 MG TABLET PO SCH ×2 (00:50→09:25)
[2020-03-03] MEDS ORDERED: LORAZEPAM 2MG/ML CPJ IV PRN (02:45)
[2020-03-03] MEDS ORDERED: PANTOPRAZOLE 40MG DR TABLET PO SCH (06:40)
[2020-03-03] MEDS: INSULIN LISPRO 100 UNITS/ML SUBCUT SCH ×4 (07:10→22:21)
[2020-03-03 08:58] LABS: HEMATOCRIT 24.6 % (42.0-52.0); HEMOGLOBIN 8.1 g/dL (14.0-18.0); MEAN CORPUSCULAR HEMOGLOBIN 27.9 pg (28.0-32.0); MEAN CORPUSCULAR VOLUME 84.6 fL (80.0-94.0); PLATELET 150 x1000/uL (130-400); RED BLOOD CELL COUNT 2.91 mill/uL (4.7-6.1); RED CELL DISTRIBUTION WIDTH 19.7 % (11.6-14.6)
[2020-03-03 09:06] LABS: CHLORIDE 110 mEq/L (98-107)
[2020-03-03] MEDS ORDERED: FUROSEMIDE 40MG/4ML VIAL IVP SCH (12:00)
[2020-03-03] MEDS ORDERED: VANCOMYCIN 1250MG in DEXTROSE 5% WATER 250ML IV SCH (18:00)
[2020-03-03 18:51] LABS: CLARITY URINE CLEAR (CLEAR); COLOR URINE YELLOW (YELLOW); KETONES URINE NEGATIVE (NEGATIVE); LEUKOCYTE ESTERASE URINE 3+ (NEGATIVE); NITRITE URINE NEGATIVE (NEGATIVE); OCCULT BLOOD URINE NEGATIVE (NEGATIVE); PH URINE 5.5 (4.5-8.0); PROTEIN URINE TRACE (NEGATIVE); SPECIFIC GRAVITY URINE 1.019 (1.005-1.030)
[2020-03-03] MEDS: ATORVASTATIN CALCIUM 40MG TABLET PO SCH (20:39)
[2020-03-03] MEDS: LINEZOLID 600 MG PREMIX 300 ML IV SCH (20:39)
[2020-03-04] VITALS (7 sets, daily range): BP systolic 98–109; BP diastolic 41–66
[2020-03-04] MEDS: BLOOD SUGAR DIAGNOSTIC STRIP TEST SCH ×4 (06:16→20:32)
[2020-03-04] MEDS: INSULIN LISPRO 100 UNITS/ML SUBCUT SCH ×4 (06:17→20:37)
[2020-03-04] MEDS: PANTOPRAZOLE SODIUM 40 MG/VIAL IV SCH (08:15)
[2020-03-04] MEDS: LINEZOLID 600 MG PREMIX 300 ML IV SCH ×2 (08:15→20:31)
[2020-03-04] MEDS: AZITHROMYCIN 500 MG TABLET PO SCH (08:15)
[2020-03-04] MEDS ORDERED: VANCOMYCIN 1 G PREMIX 200 ML IV SCH (12:00)
[2020-03-04] MEDS: SODIUM HYPOCHLORITE 0.125% 473ML SOLUTION TOP SCH (13:30)
[2020-03-04] MEDS: CEFEPIME 1,000 MG in DEXTROSE 5% WATER 50 ML IV SCH (17:01)
[2020-03-04] MEDS: ATORVASTATIN CALCIUM 40MG TABLET PO SCH (20:31)
[2020-03-05] VITALS: BP 124/40
[2020-03-05] MEDS: BLOOD SUGAR DIAGNOSTIC STRIP TEST SCH ×4 (06:19→21:11)
[2020-03-05] MEDS: CEFEPIME 1,000 MG in DEXTROSE 5% WATER 50 ML IV SCH ×2 (06:19→17:58)
[2020-03-05] MEDS: INSULIN LISPRO 100 UNITS/ML SUBCUT SCH ×4 (06:20→21:26)
[2020-03-05 07:53] LABS: BASOPHILS % 0.3 % (0.0-2.0); EOSINOPHILS % 0.8 % (0.0-5.0); HEMATOCRIT. 23.7 % (42.0-52.0); HEMOGLOBIN. 7.8 g/dL (14.0-18.0); LYMPHOCYTES % 11.9 % (20.0-50.0); MEAN CORPUSCULAR HEMOGLOBIN 28.6 pg (28.0-32.0); MEAN PLATELET VOLUME 8.2 fl (7.4-10.4); MONOCYTES % 11.3 % (2.0-8.0); NEUTROPHILS % 75.7 % (40.0-76.0); PLATELET 188 x1000/uL (130-400); RED BLOOD CELL COUNT 2.72 mill/uL (4.7-6.1)
[2020-03-05 08:00] VITALS: BP 90/41
[2020-03-05 08:04] LABS: CHLORIDE 111 mEq/L (98-107)
[2020-03-05] MEDS: SODIUM HYPOCHLORITE 0.125% 473ML SOLUTION TOP SCH (09:17)
[2020-03-05] MEDS: LINEZOLID 600 MG PREMIX 300 ML IV SCH ×2 (09:17→20:19)
[2020-03-05] MEDS: AZITHROMYCIN 500 MG TABLET PO SCH (09:18)
[2020-03-05] MEDS: PANTOPRAZOLE SODIUM 40 MG/VIAL IV SCH (09:18)
[2020-03-05 12:00] VITALS: BP 98/41
[2020-03-05 16:00] VITALS: BP 103/42
[2020-03-05 20:00] VITALS: BP 101/54
[2020-03-05] MEDS: ATORVASTATIN CALCIUM 40MG TABLET PO SCH (20:19)
[2020-03-06] VITALS: BP 108/58
[2020-03-06 04:00] VITALS: BP 119/72
[2020-03-06] MEDS: CEFEPIME 1,000 MG in DEXTROSE 5% WATER 50 ML IV SCH ×2 (05:13→18:08)
[2020-03-06] MEDS: INSULIN LISPRO 100 UNITS/ML SUBCUT SCH ×4 (05:47→21:00)
[2020-03-06] MEDS: BLOOD SUGAR DIAGNOSTIC STRIP TEST SCH ×4 (05:47→21:00)
[2020-03-06 08:00] VITALS: BP 123/65
[2020-03-06] MEDS: PANTOPRAZOLE SODIUM 40 MG/VIAL IV SCH (08:46)
[2020-03-06] MEDS: SODIUM HYPOCHLORITE 0.125% 473ML SOLUTION TOP SCH (08:46)
[2020-03-06] MEDS: AZITHROMYCIN 500 MG TABLET PO SCH (08:46)
[2020-03-06] MEDS: LINEZOLID 600 MG PREMIX 300 ML IV SCH (08:46)
[2020-03-06 12:00] VITALS: BP 124/57
[2020-03-06 16:00] VITALS: BP 135/84
[2020-03-06 20:00] VITALS: BP 115/59
[2020-03-06] MEDS: LINEZOLID 600MG TABLET PO SCH (21:19)
[2020-03-06] MEDS: ATORVASTATIN CALCIUM 40MG TABLET PO SCH (21:19)
[2020-03-07] VITALS: BP 115/44
[2020-03-07 05:30] VITALS: BP 145/69
[2020-03-07] MEDS: CEFEPIME 1,000 MG in DEXTROSE 5% WATER 50 ML IV SCH ×2 (06:01→18:16)
[2020-03-07] MEDS: BLOOD SUGAR DIAGNOSTIC STRIP TEST SCH ×4 (06:57→21:00)
[2020-03-07] MEDS: INSULIN LISPRO 100 UNITS/ML SUBCUT SCH ×4 (06:57→21:00)
[2020-03-07 08:00] VITALS: BP 150/58
[2020-03-07] MEDS: PANTOPRAZOLE SODIUM 40 MG/VIAL IV SCH (08:53)
[2020-03-07] MEDS: AZITHROMYCIN 500 MG TABLET PO SCH (08:53)
[2020-03-07] MEDS: LINEZOLID 600MG TABLET PO SCH ×2 (08:56→21:26)
[2020-03-07] MEDS: SODIUM HYPOCHLORITE 0.125% 473ML SOLUTION TOP SCH (10:19)
[2020-03-07 12:00] VITALS: BP 135/70
[2020-03-07 16:00] VITALS: BP 119/63
[2020-03-07 20:00] VITALS: BP 141/52
[2020-03-07] MEDS: ATORVASTATIN CALCIUM 40MG TABLET PO SCH (21:26)
[2020-03-08] VITALS: BP 117/48
[2020-03-08 04:00] VITALS: BP 118/50
[2020-03-08] MEDS: CEFEPIME 1,000 MG in DEXTROSE 5% WATER 50 ML IV SCH ×2 (04:58→16:53)
[2020-03-08] MEDS: BLOOD SUGAR DIAGNOSTIC STRIP TEST SCH ×4 (05:49→21:00)
[2020-03-08] MEDS: INSULIN LISPRO 100 UNITS/ML SUBCUT SCH ×4 (05:49→21:00)
[2020-03-08 08:02] VITALS: BP 123/64
[2020-03-08] MEDS: AZITHROMYCIN 500 MG TABLET PO SCH (08:54)
[2020-03-08] MEDS: PANTOPRAZOLE SODIUM 40 MG/VIAL IV SCH (08:54)
[2020-03-08] MEDS: LINEZOLID 600MG TABLET PO SCH ×2 (08:54→21:31)
[2020-03-08] MEDS: SODIUM HYPOCHLORITE 0.125% 473ML SOLUTION TOP SCH (08:55)
[2020-03-08 12:00] VITALS: BP 126/65
[2020-03-08 16:00] VITALS: BP 117/45
[2020-03-08 20:00] VITALS: BP 134/67
[2020-03-08] MEDS: ATORVASTATIN CALCIUM 40MG TABLET PO SCH (21:31)
[2020-03-09] VITALS: BP_SYST 129; BP_SYST 134; BP_DIAS 67; BP_DIAS 78
[2020-03-09 04:00] VITALS: BP 130/52
[2020-03-09] MEDS: CEFEPIME 1,000 MG in DEXTROSE 5% WATER 50 ML IV SCH ×2 (05:10→17:29)
[2020-03-09] MEDS: BLOOD SUGAR DIAGNOSTIC STRIP TEST SCH ×4 (06:04→20:48)
[2020-03-09] MEDS: INSULIN LISPRO 100 UNITS/ML SUBCUT SCH ×4 (06:33→20:48)
[2020-03-09 08:00] VITALS: BP 158/74
[2020-03-09] MEDS: PANTOPRAZOLE SODIUM 40 MG/VIAL IV SCH (08:57)
[2020-03-09] MEDS: SODIUM HYPOCHLORITE 0.125% 473ML SOLUTION TOP SCH ×2 (08:57→09:22)
[2020-03-09 11:36] LABS: BASOPHILS % 0.5 % (0.0-2.0); EOSINOPHILS % 2.2 % (0.0-5.0); HEMATOCRIT. 24.4 % (42.0-52.0); HEMOGLOBIN. 8.1 g/dL (14.0-18.0); LYMPHOCYTES % 12.7 % (20.0-50.0); MEAN CORPUSCULAR HEMOGLOBIN 29.5 pg (28.0-32.0); MEAN CORPUSCULAR VOLUME 89.1 fL (80.0-94.0); MEAN PLATELET VOLUME 7.9 fl (7.4-10.4); NEUTROPHILS % 77.6 % (40.0-76.0); PLATELET 289 x1000/uL (130-400); RED BLOOD CELL COUNT 2.74 mill/uL (4.7-6.1); RED CELL DISTRIBUTION WIDTH 21.3 % (11.6-14.6)
[2020-03-09 11:40] LABS: CHLORIDE 116 mEq/L (98-107)
[2020-03-09 12:11] VITALS: BP 159/85
[2020-03-09 16:06] VITALS: BP 161/62
[2020-03-09 20:00] VITALS: BP 143/71
[2020-03-09] MEDS: ATORVASTATIN CALCIUM 40MG TABLET PO SCH (20:48)
[2020-03-10] VITALS: BP 138/60
[2020-03-10 04:00] VITALS: BP 118/66
[2020-03-10] MEDS: BLOOD SUGAR DIAGNOSTIC STRIP TEST SCH ×4 (06:09→21:51)
[2020-03-10] MEDS: INSULIN LISPRO 100 UNITS/ML SUBCUT SCH ×4 (06:10→21:00)
[2020-03-10 08:00] VITALS: BP 128/75
[2020-03-10] MEDS: PANTOPRAZOLE SODIUM 40 MG/VIAL IV SCH (09:49)
[2020-03-10] MEDS: SODIUM HYPOCHLORITE 0.125% 473ML SOLUTION TOP SCH (09:49)
[2020-03-10 12:00] VITALS: BP 103/61
[2020-03-10 16:00] VITALS: BP 112/46
[2020-03-10 20:00] VITALS: BP 104/58
[2020-03-10] MEDS: ATORVASTATIN CALCIUM 40MG TABLET PO SCH (21:07)
[2020-03-11] VITALS: BP 122/44
[2020-03-11 04:00] VITALS: BP 105/55
[2020-03-11] MEDS: INSULIN LISPRO 100 UNITS/ML SUBCUT SCH ×4 (07:10→21:00)
[2020-03-11 08:00] VITALS: BP 116/58
[2020-03-11] MEDS: PANTOPRAZOLE SODIUM 40 MG/VIAL IV SCH (08:34)
[2020-03-11] MEDS: SODIUM HYPOCHLORITE 0.125% 473ML SOLUTION TOP SCH (09:12)
[2020-03-11] MEDS: BLOOD SUGAR DIAGNOSTIC STRIP TEST SCH ×3 (11:40→21:00)
[2020-03-11 12:00] VITALS: BP 137/65
[2020-03-11 16:00] VITALS: BP 137/37
[2020-03-11 20:00] VITALS: BP 137/52
[2020-03-11] MEDS: ATORVASTATIN CALCIUM 40MG TABLET PO SCH (20:22)
[2020-03-12] VITALS: BP 130/50
[2020-03-12 04:00] VITALS: BP 117/65
[2020-03-12] MEDS: BLOOD SUGAR DIAGNOSTIC STRIP TEST SCH ×4 (06:00→21:00)
[2020-03-12] MEDS: INSULIN LISPRO 100 UNITS/ML SUBCUT SCH ×4 (06:24→21:00)
[2020-03-12 08:00] VITALS: BP 140/81
[2020-03-12 12:00] VITALS: BP 115/62
[2020-03-12 16:00] VITALS: BP 130/56
[2020-03-12] MEDS: SODIUM HYPOCHLORITE 0.125% 473ML SOLUTION TOP SCH (17:09)
[2020-03-12 20:00] VITALS: BP 126/98
[2020-03-12] MEDS: ATORVASTATIN CALCIUM 40MG TABLET PO SCH (20:45)
[2020-03-13] VITALS (7 sets, daily range): BP systolic 108–140; BP diastolic 34–100
[2020-03-13] MEDS: BLOOD SUGAR DIAGNOSTIC STRIP TEST SCH ×4 (06:02→20:39)
[2020-03-13] MEDS: INSULIN LISPRO 100 UNITS/ML SUBCUT SCH ×4 (06:02→21:00)
[2020-03-13] MEDS: SODIUM HYPOCHLORITE 0.125% 473ML SOLUTION TOP SCH (09:03)
[2020-03-13] MEDS: LORAZEPAM 2MG/ML CPJ IV PRN (16:08)
[2020-03-13] MEDS: ATORVASTATIN CALCIUM 40MG TABLET PO SCH (20:39)
[2020-03-14] VITALS: BP 128/76
[2020-03-14 04:00] VITALS: BP 123/58
[2020-03-14] MEDS: LORAZEPAM 2MG/ML CPJ IV PRN ×2 (06:15→17:06)
[2020-03-14] MEDS: BLOOD SUGAR DIAGNOSTIC STRIP TEST SCH ×4 (06:32→22:00)
[2020-03-14] MEDS: INSULIN LISPRO 100 UNITS/ML SUBCUT SCH ×4 (06:59→22:00)
[2020-03-14 08:00] VITALS: BP 129/54
[2020-03-14] MEDS: SODIUM HYPOCHLORITE 0.125% 473ML SOLUTION TOP SCH (11:12)
[2020-03-14 12:00] VITALS: BP 124/56
[2020-03-14 16:00] VITALS: BP 122/67
[2020-03-14 20:00] VITALS: BP 133/56
[2020-03-14] MEDS: ATORVASTATIN CALCIUM 40MG TABLET PO SCH (21:49)
[2020-03-15] VITALS: BP 131/58
[2020-03-15 04:00] VITALS: BP 135/48
[2020-03-15] MEDS: INSULIN LISPRO 100 UNITS/ML SUBCUT SCH ×4 (07:10→21:00)
[2020-03-15] MEDS: BLOOD SUGAR DIAGNOSTIC STRIP TEST SCH ×4 (07:21→21:41)
[2020-03-15 08:00] VITALS: BP 124/48
[2020-03-15] MEDS: SODIUM HYPOCHLORITE 0.125% 473ML SOLUTION TOP SCH (11:58)
[2020-03-15 20:00] VITALS: BP 125/48
[2020-03-15] MEDS: ATORVASTATIN CALCIUM 40MG TABLET PO SCH (20:32)
[2020-03-15 23:58] VITALS: BP 127/50
[2020-03-16 04:37] VITALS: BP 132/50
[2020-03-16] MEDS: BLOOD SUGAR DIAGNOSTIC STRIP TEST SCH ×4 (05:54→21:00)
[2020-03-16] MEDS: INSULIN LISPRO 100 UNITS/ML SUBCUT SCH ×4 (05:54→23:58)
[2020-03-16 08:00] VITALS: BP 121/50
[2020-03-16] MEDS: SODIUM HYPOCHLORITE 0.125% 473ML SOLUTION TOP SCH (08:52)
[2020-03-16 12:00] VITALS: BP 112/47
[2020-03-16 16:03] VITALS: BP 110/47
[2020-03-16 20:00] VITALS: BP 128/59
[2020-03-16] MEDS: ATORVASTATIN CALCIUM 40MG TABLET PO SCH (21:45)
[2020-03-17] VITALS: BP 131/63
[2020-03-17 04:00] VITALS: BP 124/62
[2020-03-17] MEDS: BLOOD SUGAR DIAGNOSTIC STRIP TEST SCH ×4 (07:16→21:30)
[2020-03-17] MEDS: INSULIN LISPRO 100 UNITS/ML SUBCUT SCH ×4 (07:16→21:00)
[2020-03-17 08:00] VITALS: BP 152/52
[2020-03-17] MEDS: SODIUM HYPOCHLORITE 0.125% 473ML SOLUTION TOP SCH (08:16)
[2020-03-17 12:00] VITALS: BP 127/44
[2020-03-17 16:00] VITALS: BP 139/53
[2020-03-17 20:00] VITALS: BP 136/52
[2020-03-17] MEDS: ATORVASTATIN CALCIUM 40MG TABLET PO SCH (21:29)
[2020-03-18] VITALS: BP 132/56
[2020-03-18 04:00] VITALS: BP 138/52
[2020-03-18 06:37] LABS: BASOPHILS % 0.3 % (0.0-2.0); EOSINOPHILS % 1.5 % (0.0-5.0); HEMOGLOBIN. 8.1 g/dL (14.0-18.0); LYMPHOCYTES % 7.7 % (20.0-50.0); MEAN CORPUSCULAR HEMOGLOBIN 29.8 pg (28.0-32.0); MEAN CORPUSCULAR VOLUME 91.7 fL (80.0-94.0); MEAN PLATELET VOLUME 8.6 fl (7.4-10.4); MONOCYTES % 7.3 % (2.0-8.0); NEUTROPHILS % 83.2 % (40.0-76.0); PLATELET 203 x1000/uL (130-400); RED BLOOD CELL COUNT 2.72 mill/uL (4.7-6.1); RED CELL DISTRIBUTION WIDTH 23.5 % (11.6-14.6)
[2020-03-18] MEDS: BLOOD SUGAR DIAGNOSTIC STRIP TEST SCH ×4 (07:00→20:30)
[2020-03-18 07:21] LABS: CHLORIDE 114 mEq/L (98-107)
[2020-03-18] MEDS: INSULIN LISPRO 100 UNITS/ML SUBCUT SCH ×4 (07:27→20:30)
[2020-03-18 08:00] VITALS: BP 139/63
[2020-03-18] MEDS: SODIUM HYPOCHLORITE 0.125% 473ML SOLUTION TOP SCH (08:35)
[2020-03-18 12:00] VITALS: BP 145/53
[2020-03-18] MEDS ORDERED: SODIUM POLYSTYRENE SULFONATE 15 G/60 ML BOT PO NR (13:15)
[2020-03-18 16:00] VITALS: BP 136/65
[2020-03-18 16:25] LABS: PLATELET ESTIMATE NORMAL
[2020-03-18 20:00] VITALS: BP 144/63
[2020-03-18] MEDS: ATORVASTATIN CALCIUM 40MG TABLET PO SCH (20:30)
[2020-03-19] VITALS: BP 127/55
[2020-03-19 04:00] VITALS: BP 126/51
[2020-03-19] MEDS: INSULIN LISPRO 100 UNITS/ML SUBCUT SCH ×4 (06:30→20:54)
[2020-03-19] MEDS: BLOOD SUGAR DIAGNOSTIC STRIP TEST SCH ×4 (06:31→20:54)
[2020-03-19 08:00] VITALS: BP 142/58
[2020-03-19] MEDS: SODIUM HYPOCHLORITE 0.125% 473ML SOLUTION TOP SCH (09:01)
[2020-03-19 12:00] VITALS: BP 134/52
[2020-03-19 16:00] VITALS: BP_SYST 134; BP_SYST 155; BP_DIAS 52; BP_DIAS 74
[2020-03-19 20:47] VITALS: BP 112/63
[2020-03-19] MEDS: ATORVASTATIN CALCIUM 40MG TABLET PO SCH (20:54)
[2020-03-20] VITALS: BP 115/65
[2020-03-20 04:40] VITALS: BP 112/52
[2020-03-20] MEDS: INSULIN LISPRO 100 UNITS/ML SUBCUT SCH ×4 (06:32→21:00)
[2020-03-20] MEDS: BLOOD SUGAR DIAGNOSTIC STRIP TEST SCH ×4 (06:32→21:00)
[2020-03-20 08:00] VITALS: BP 112/56
[2020-03-20] MEDS: SODIUM HYPOCHLORITE 0.125% 473ML SOLUTION TOP SCH (09:25)
[2020-03-20 12:00] VITALS: BP 118/60
[2020-03-20 16:00] VITALS: BP 123/50
[2020-03-20 20:39] VITALS: BP 128/66
[2020-03-20] MEDS: ATORVASTATIN CALCIUM 40MG TABLET PO SCH (21:22)
[2020-03-21 00:07] VITALS: BP 128/45
[2020-03-21 04:00] VITALS: BP 123/48
[2020-03-21] MEDS: BLOOD SUGAR DIAGNOSTIC STRIP TEST SCH ×4 (06:15→20:29)
[2020-03-21] MEDS: INSULIN LISPRO 100 UNITS/ML SUBCUT SCH ×4 (06:15→20:29)
[2020-03-21 08:00] VITALS: BP 115/54
[2020-03-21] MEDS: SODIUM HYPOCHLORITE 0.125% 473ML SOLUTION TOP SCH (08:12)
[2020-03-21 12:00] VITALS: BP 119/75
[2020-03-21 16:00] VITALS: BP 115/50
[2020-03-21 20:00] VITALS: BP 108/60
[2020-03-21] MEDS: ATORVASTATIN CALCIUM 40MG TABLET PO SCH (21:08)
[2020-03-22 00:42] VITALS: BP 113/71
[2020-03-22 04:00] VITALS: BP 100/49
[2020-03-22] MEDS: BLOOD SUGAR DIAGNOSTIC STRIP TEST SCH ×4 (05:29→21:21)
[2020-03-22] MEDS: INSULIN LISPRO 100 UNITS/ML SUBCUT SCH ×4 (05:29→21:00)
[2020-03-22 08:00] VITALS: BP 120/52
[2020-03-22] MEDS: SODIUM HYPOCHLORITE 0.125% 473ML SOLUTION TOP SCH (09:26)
[2020-03-22 12:00] VITALS: BP 118/54
[2020-03-22 16:00] VITALS: BP 101/43
[2020-03-22 20:00] VITALS: BP 98/49
[2020-03-22] MEDS: ATORVASTATIN CALCIUM 40MG TABLET PO SCH (21:21)
[2020-03-23] VITALS: BP 107/52
[2020-03-23 04:00] VITALS: BP 101/48
[2020-03-23] MEDS: BLOOD SUGAR DIAGNOSTIC STRIP TEST SCH ×4 (06:17→21:00)
[2020-03-23] MEDS: INSULIN LISPRO 100 UNITS/ML SUBCUT SCH ×4 (06:18→21:00)
[2020-03-23 08:00] VITALS: BP 120/45
[2020-03-23] MEDS: SODIUM HYPOCHLORITE 0.125% 473ML SOLUTION TOP SCH (09:14)
[2020-03-23 12:00] VITALS: BP 97/51
[2020-03-23] MEDS: LORAZEPAM 2MG/ML CPJ IV PRN (13:01)
[2020-03-23 16:00] VITALS: BP 100/38
[2020-03-23 20:00] VITALS: BP 93/47
[2020-03-23] MEDS: ATORVASTATIN CALCIUM 40MG TABLET PO SCH (22:15)
[2020-03-24] VITALS (82 sets, daily range): BP systolic 78–176; BP diastolic 24–102
[2020-03-24] MEDS ORDERED: NOREPINEPHRINE 4MG/250ML PMX 250 ML IV ONE (06:30)
[2020-03-24] MEDS: BLOOD SUGAR DIAGNOSTIC STRIP TEST SCH ×4 (06:47→21:11)
[2020-03-24] MEDS: INSULIN LISPRO 100 UNITS/ML SUBCUT SCH ×4 (07:00→21:00)
[2020-03-24] MEDS ORDERED: SODIUM CHLORIDE 0.9% 500 ML IV ONE (09:30)
[2020-03-24] MEDS ORDERED: LIDOCAINE HCL 1% 20ML VIAL (Pyxis) INJ ONE (09:35)
[2020-03-24] MEDS: NOREPINEPHRINE 4 MG in DEXTROSE 5% WATER 250 ML IV PRN (09:51)
[2020-03-24] MEDS: DOPAMINE HCL 400 MG in DEXT 5% WATER 240 ML IV PRN (11:19)
[2020-03-24] MEDS: LORAZEPAM 2MG/ML CPJ IV PRN ×2 (12:02→21:43)
[2020-03-24 17:55] LABS: BASOPHILS % 0.4 % (0.0-2.0); EOSINOPHILS % 0.7 % (0.0-5.0); HEMATOCRIT. 32.4 % (42.0-52.0); HEMOGLOBIN. 10.4 g/dL (14.0-18.0); LYMPHOCYTES % 8.6 % (20.0-50.0); MEAN CORPUSCULAR HEMOGLOBIN 30.3 pg (28.0-32.0); MEAN CORPUSCULAR VOLUME 94.4 fL (80.0-94.0); MEAN PLATELET VOLUME 9.6 fl (7.4-10.4); MONOCYTES % 4.8 % (2.0-8.0); NEUTROPHILS % 85.5 % (40.0-76.0); PLATELET 106 x1000/uL (130-400); RED BLOOD CELL COUNT 3.43 mill/uL (4.7-6.1); RED CELL DISTRIBUTION WIDTH 24.9 % (11.6-14.6)
[2020-03-24 18:03] LABS: CHLORIDE 113 mEq/L (98-107)
[2020-03-24] MEDS: ATORVASTATIN CALCIUM 40MG TABLET PO SCH (21:12)
[2020-03-25] VITALS (99 sets, daily range): BP systolic 73–120; BP diastolic 17–70
[2020-03-25] MEDS: INSULIN LISPRO 100 UNITS/ML SUBCUT SCH ×4 (05:29→20:41)
[2020-03-25] MEDS: BLOOD SUGAR DIAGNOSTIC STRIP TEST SCH ×4 (05:29→20:40)
[2020-03-25] MEDS: SODIUM HYPOCHLORITE 0.125% 473ML SOLUTION TOP SCH (08:58)
[2020-03-25] MEDS: MIDODRINE HCL 5MG TABLET PO SCH ×2 (12:24→17:20)
[2020-03-25] MEDS: DOPAMINE HCL 400 MG in DEXT 5% WATER 240 ML IV PRN ×2 (12:30→23:30)
[2020-03-25] MEDS: ATORVASTATIN CALCIUM 40MG TABLET PO SCH (21:24)
[2020-03-26] VITALS (98 sets, daily range): BP systolic 61–136; BP diastolic 21–82
[2020-03-26 05:50] LABS: HEMATOCRIT. 29.5 % (42.0-52.0); HEMOGLOBIN. 9.5 g/dL (14.0-18.0); MEAN CORPUSCULAR HEMOGLOBIN 29.9 pg (28.0-32.0); MEAN CORPUSCULAR VOLUME 92.7 fL (80.0-94.0); MEAN PLATELET VOLUME 9.3 fl (7.4-10.4); PLATELET 107 x1000/uL (130-400); RED BLOOD CELL COUNT 3.18 mill/uL (4.7-6.1)
[2020-03-26] MEDS: INSULIN LISPRO 100 UNITS/ML SUBCUT SCH ×4 (06:29→20:39)
[2020-03-26] MEDS: BLOOD SUGAR DIAGNOSTIC STRIP TEST SCH ×4 (06:29→20:38)
[2020-03-26] MEDS: MIDODRINE HCL 5MG TABLET PO SCH ×3 (08:21→16:24)
[2020-03-26] MEDS: SODIUM HYPOCHLORITE 0.125% 473ML SOLUTION TOP SCH (08:21)
[2020-03-26 09:47] LABS: PLATELET ESTIMATE DECREASED
[2020-03-26] MEDS: NOREPINEPHRINE 4 MG in DEXTROSE 5% WATER 250 ML IV PRN (13:38)
[2020-03-26] MEDS: CEFEPIME 1,000 MG in DEXTROSE 5% WATER 50 ML IV SCH (14:29)
[2020-03-26 15:41] LABS: CLARITY URINE TURBID (CLEAR); COLOR URINE DARK YELLOW (YELLOW); KETONES URINE TRACE (NEGATIVE); LEUKOCYTE ESTERASE URINE 2+ (NEGATIVE); NITRITE URINE NEGATIVE (NEGATIVE); OCCULT BLOOD URINE 3+ (NEGATIVE); PROTEIN URINE 2+ (NEGATIVE); SPECIFIC GRAVITY URINE 1.021 (1.005-1.030)
[2020-03-26] MEDS ORDERED: NOREPINEPHRINE 8 MG in DEXT 5% WATER 492 ML IV PRN ×2 (20:42→22:15)
[2020-03-26] MEDS: ATORVASTATIN CALCIUM 40MG TABLET PO SCH (20:58)
[2020-03-27] VITALS (97 sets, daily range): BP systolic 91–153; BP diastolic 21–96
[2020-03-27 04:54] LABS: BASOPHILS % 0.3 % (0.0-2.0); EOSINOPHILS % 0.4 % (0.0-5.0); HEMATOCRIT. 23.9 % (42.0-52.0); HEMOGLOBIN. 7.8 g/dL (14.0-18.0); LYMPHOCYTES % 9.4 % (20.0-50.0); MEAN CORPUSCULAR HEMOGLOBIN 30.2 pg (28.0-32.0); MEAN CORPUSCULAR VOLUME 92.9 fL (80.0-94.0); MEAN PLATELET VOLUME 8.7 fl (7.4-10.4); MONOCYTES % 5.1 % (2.0-8.0); NEUTROPHILS % 84.8 % (40.0-76.0); PLATELET 88 x1000/uL (130-400); RED BLOOD CELL COUNT 2.58 mill/uL (4.7-6.1); RED CELL DISTRIBUTION WIDTH 24.6 % (11.6-14.6)
[2020-03-27 05:04] LABS: CHLORIDE 107 mEq/L (98-107)
[2020-03-27] MEDS: INSULIN LISPRO 100 UNITS/ML SUBCUT SCH ×4 (06:38→20:11)
[2020-03-27] MEDS: BLOOD SUGAR DIAGNOSTIC STRIP TEST SCH ×4 (06:38→20:11)
[2020-03-27] MEDS: MIDODRINE HCL 5MG TABLET PO SCH ×3 (09:05→17:43)
[2020-03-27] MEDS: SODIUM HYPOCHLORITE 0.125% 473ML SOLUTION TOP SCH (09:05)
[2020-03-27] MEDS: SODIUM CHLORIDE 0.9% 1,000 ML IV SCH (09:41)
[2020-03-27] MEDS: CEFEPIME 1,000 MG in DEXTROSE 5% WATER 50 ML IV SCH (12:54)
[2020-03-27] MEDS: LORAZEPAM 2MG/ML CPJ IV PRN (20:11)
[2020-03-27] MEDS: ATORVASTATIN CALCIUM 40MG TABLET PO SCH (20:11)
[2020-03-28] VITALS (80 sets, daily range): BP systolic 87–163; BP diastolic 24–112
[2020-03-28] MEDS: SODIUM CHLORIDE 0.9% 1,000 ML IV SCH (05:20)
[2020-03-28 05:35] LABS: BASOPHILS % 0.6 % (0.0-2.0); EOSINOPHILS % 1.8 % (0.0-5.0); HEMOGLOBIN. 7.3 g/dL (14.0-18.0); MEAN CORPUSCULAR HEMOGLOBIN 30.7 pg (28.0-32.0); MEAN CORPUSCULAR VOLUME 92.8 fL (80.0-94.0); MEAN PLATELET VOLUME 9.4 fl (7.4-10.4); MONOCYTES % 4.5 % (2.0-8.0); NEUTROPHILS % 84.1 % (40.0-76.0); PLATELET 87 x1000/uL (130-400); RED BLOOD CELL COUNT 2.37 mill/uL (4.7-6.1); RED CELL DISTRIBUTION WIDTH 24.6 % (11.6-14.6)
[2020-03-28] MEDS: BLOOD SUGAR DIAGNOSTIC STRIP TEST SCH ×4 (06:42→20:23)
[2020-03-28] MEDS: INSULIN LISPRO 100 UNITS/ML SUBCUT SCH ×4 (06:42→20:23)
[2020-03-28 09:43] LABS: CHLORIDE 117 mEq/L (98-107)
[2020-03-28] MEDS: SODIUM HYPOCHLORITE 0.125% 473ML SOLUTION TOP SCH (10:06)
[2020-03-28] MEDS: MIDODRINE HCL 5MG TABLET PO SCH ×3 (10:06→17:07)
[2020-03-28] MEDS: FLUDROCORTISONE ACETATE 0.1MG TABLET PO SCH (10:06)
[2020-03-28] MEDS: CEFEPIME 1,000 MG in DEXTROSE 5% WATER 50 ML IV SCH (15:11)
[2020-03-28] MEDS: ATORVASTATIN CALCIUM 40MG TABLET PO SCH (20:23)
[2020-03-29] VITALS (26 sets, daily range): BP systolic 87–134; BP diastolic 36–98
[2020-03-29] MEDS: SODIUM CHLORIDE 0.9% 1,000 ML IV SCH ×2 (01:04→21:41)
[2020-03-29 06:04] LABS: CHLORIDE 116 mEq/L (98-107)
[2020-03-29] MEDS: INSULIN LISPRO 100 UNITS/ML SUBCUT SCH ×4 (06:04→20:52)
[2020-03-29] MEDS: BLOOD SUGAR DIAGNOSTIC STRIP TEST SCH ×4 (06:04→20:52)
[2020-03-29 06:10] LABS: BASOPHILS % 0.2 % (0.0-2.0); EOSINOPHILS % 3.3 % (0.0-5.0); HEMATOCRIT. 22.2 % (42.0-52.0); HEMOGLOBIN. 7.5 g/dL (14.0-18.0); LYMPHOCYTES % 13.1 % (20.0-50.0); MEAN CORPUSCULAR VOLUME 91.8 fL (80.0-94.0); MEAN PLATELET VOLUME 8.9 fl (7.4-10.4); MONOCYTES % 6.8 % (2.0-8.0); NEUTROPHILS % 76.6 % (40.0-76.0); PLATELET 72 x1000/uL (130-400); RED BLOOD CELL COUNT 2.41 mill/uL (4.7-6.1); RED CELL DISTRIBUTION WIDTH 24.6 % (11.6-14.6)
[2020-03-29] MEDS: SODIUM HYPOCHLORITE 0.125% 473ML SOLUTION TOP SCH (08:53)
[2020-03-29] MEDS: MIDODRINE HCL 5MG TABLET PO SCH ×3 (08:53→17:21)
[2020-03-29] MEDS: FLUDROCORTISONE ACETATE 0.1MG TABLET PO SCH (08:53)
[2020-03-29] MEDS: CEFEPIME 1,000 MG in DEXTROSE 5% WATER 50 ML IV SCH (18:24)
[2020-03-29] MEDS: ATORVASTATIN CALCIUM 40MG TABLET PO SCH (21:38)
[2020-03-30] VITALS: BP 110/40
[2020-03-30 04:00] VITALS: BP 126/79
[2020-03-30] MEDS: INSULIN LISPRO 100 UNITS/ML SUBCUT SCH ×4 (06:22→21:00)
[2020-03-30] MEDS: BLOOD SUGAR DIAGNOSTIC STRIP TEST SCH ×4 (06:22→20:27)
[2020-03-30 08:00] VITALS: BP 118/46
[2020-03-30] MEDS: MIDODRINE HCL 5MG TABLET PO SCH ×3 (10:40→18:34)
[2020-03-30] MEDS: SODIUM HYPOCHLORITE 0.125% 473ML SOLUTION TOP SCH (10:57)
[2020-03-30 12:00] VITALS: BP 122/77
[2020-03-30] MEDS: FLUDROCORTISONE ACETATE 0.1MG TABLET PO SCH (12:11)
[2020-03-30] MEDS: CEFEPIME 1,000 MG in DEXTROSE 5% WATER 50 ML IV SCH (15:05)
[2020-03-30] MEDS: SODIUM CHLORIDE 0.9% 1,000 ML IV SCH (17:52)
[2020-03-30 20:00] VITALS: BP 135/54
[2020-03-30] MEDS: ATORVASTATIN CALCIUM 40MG TABLET PO SCH (20:27)
[2020-03-31] VITALS: BP 121/59
[2020-03-31 04:00] VITALS: BP 119/40
[2020-03-31] MEDS: BLOOD SUGAR DIAGNOSTIC STRIP TEST SCH ×2 (06:24→11:26)
[2020-03-31] MEDS: INSULIN LISPRO 100 UNITS/ML SUBCUT SCH (06:25)
[2020-03-31 07:37] LABS: BASOPHILS % 0.3 % (0.0-2.0); EOSINOPHILS % 4.2 % (0.0-5.0); HEMATOCRIT. 25.8 % (42.0-52.0); HEMOGLOBIN. 8.5 g/dL (14.0-18.0); LYMPHOCYTES % 9.6 % (20.0-50.0); MEAN CORPUSCULAR HEMOGLOBIN 30.7 pg (28.0-32.0); MEAN CORPUSCULAR VOLUME 93.5 fL (80.0-94.0); MEAN PLATELET VOLUME 9.4 fl (7.4-10.4); MONOCYTES % 5.2 % (2.0-8.0); NEUTROPHILS % 80.7 % (40.0-76.0); PLATELET 89 x1000/uL (130-400); RED BLOOD CELL COUNT 2.76 mill/uL (4.7-6.1); RED CELL DISTRIBUTION WIDTH 25.3 % (11.6-14.6)
[2020-03-31 07:58] LABS: CHLORIDE 115 mEq/L (98-107)
[2020-03-31 08:00] VITALS: BP 118/49
[2020-03-31] MEDS: FLUDROCORTISONE ACETATE 0.1MG TABLET PO SCH (09:26)
[2020-03-31] MEDS: SODIUM HYPOCHLORITE 0.125% 473ML SOLUTION TOP SCH (09:29)
[2020-03-31] MEDS: MIDODRINE HCL 5MG TABLET PO SCH ×2 (09:29→13:00)
[2020-03-31 12:00] VITALS: BP 134/66
[2020-03-31] MEDS: SODIUM CHLORIDE 0.9% 1,000 ML IV SCH (13:15)
[2020-03-31 13:18] VITALS: BP 134/66
[2020-03-31] MEDS: CEFEPIME 1,000 MG in DEXTROSE 5% WATER 50 ML IV SCH (13:30)
== END 2020-03-31 14:48 | DRG 871 ==
LOC: ER 14:33 → 7EST 16:58 → EDBEDREQ 17:00 → EDBEDREQTM 17:00 → ENRESERV 20:29 → MICUNO 03-24 04:16 → 7EST 03-29 13:22
PROVIDERS: ADMIT Internal Medicine; ATTEND Internal Medicine
PROC: 30233N1 Transfusion of Nonautologous Red Blood Cells into Peripheral Vein, Percutaneous Approach (ICD-10-PCS; principal; 2020-03-03)
PROC: 05H533Z Insertion of Infusion Device into Right Subclavian Vein, Percutaneous Approach (ICD-10-PCS; 2020-03-24)
PROC: B546ZZA Ultrasonography of Right Subclavian Vein, Guidance (ICD-10-PCS; 2020-03-24)
DX: A41.89 Other specified sepsis (principal); U07.1 COVID-19; E43 Unspecified severe protein-calorie malnutrition; J12.89 Other viral pneumonia; R65.21 Severe sepsis with septic shock; N17.0 Acute kidney failure with tubular necrosis; R57.1 Hypovolemic shock; J96.01 Acute respiratory failure with hypoxia; M86.9 Osteomyelitis, unspecified; I48.20 Chronic atrial fibrillation, unspecified; L97.429 Non-pressure chronic ulcer of left heel and midfoot with unspecified severity; I42.9 Cardiomyopathy, unspecified; K94.23 Gastrostomy malfunction; D64.9 Anemia, unspecified; D72.810 Lymphocytopenia; E11.51 Type 2 diabetes mellitus with diabetic peripheral angiopathy without gangrene; E11.69 Type 2 diabetes mellitus with other specified complication; E78.5 Hyperlipidemia, unspecified; F03.90 Unspecified dementia, unspecified severity, without behavioral disturbance, psychotic disturbance, mood disturbance, and anxiety; F25.9 Schizoaffective disorder, unspecified; K21.9 Gastro-esophageal reflux disease without esophagitis; K29.70 Gastritis, unspecified, without bleeding; R13.10 Dysphagia, unspecified; E11.621 Type 2 diabetes mellitus with foot ulcer; F29 Unspecified psychosis not due to a substance or known physiological condition; I27.20 Pulmonary hypertension, unspecified; K52.9 Noninfective gastroenteritis and colitis, unspecified; D50.9 Iron deficiency anemia, unspecified; I99.8 Other disorder of circulatory system; R74.0 Nonspecific elevation of levels of transaminase and lactic acid dehydrogenase [LDH]; D69.6 Thrombocytopenia, unspecified; E11.22 Type 2 diabetes mellitus with diabetic chronic kidney disease; I12.9 Hypertensive chronic kidney disease with stage 1 through stage 4 chronic kidney disease, or unspecified chronic kidney disease; N18.9 Chronic kidney disease, unspecified; B97.89 Other viral agents as the cause of diseases classified elsewhere; E11.40 Type 2 diabetes mellitus with diabetic neuropathy, unspecified; Z87.440 Personal history of urinary (tract) infections; Z79.01 Long term (current) use of anticoagulants; Z79.899 Other long term (current) drug therapy; Z68.22 Body mass index [BMI] 22.0-22.9, adult; Z87.891 Personal history of nicotine dependence; Z86.73 Personal history of transient ischemic attack (TIA), and cerebral infarction without residual deficits
CPT/HCPCS: 36415; 71045; 76937; 80048; 80053; 80076; 81003; 82270; 82962; 83036; 83605; 83735; 83880; 84145; 84484; 85025; 85027; 86850; 86900; 86920; 87070; 87077; 87635; 93005; 99291; C1725; C9113; J0692; J0696; J1265; J1815; J1940; J2020; J2060; J3370; J3490; J7030; J7060; P9016; P9021; U0003-CS

== ENCOUNTER 2020-05-06 22:09 | Inpatient (IN) | payer MEDICARE, OTHER, MEDICAID ==
[~2020-05-06] VITALS: Ht 175.3 cm; Wt 55.4 kg
[2020-05-06] MEDS ORDERED: PIPERACILLIN/TAZ 3.375G PREMIX 50 ML IV ONE (23:00)
[2020-05-06] MEDS ORDERED: SODIUM CHLORIDE 0.9% 1000ML BAG (SEPSIS BOLUS) IV ONE (23:00)
[2020-05-06] MEDS ORDERED: VANCOMYCIN 1 G PREMIX 200 ML IV ONE (23:00)
[2020-05-06 23:41] LABS: BASOPHILS % 0.4 % (0.0-2.0); EOSINOPHILS % 6.8 % (0.0-5.0); HEMATOCRIT. 25.9 % (42.0-52.0); HEMOGLOBIN. 8.4 g/dL (14.0-18.0); LYMPHOCYTES % 17.8 % (20.0-50.0); MEAN CORPUSCULAR HEMOGLOBIN 31.4 pg (28.0-32.0); MEAN CORPUSCULAR VOLUME 96.2 fL (80.0-94.0); MEAN PLATELET VOLUME 8.4 fl (7.4-10.4); MONOCYTES % 7.8 % (2.0-8.0); NEUTROPHILS % 67.2 % (40.0-76.0); PLATELET 195 x1000/uL (130-400); RED BLOOD CELL COUNT 2.69 mill/uL (4.7-6.1); RED CELL DISTRIBUTION WIDTH 17.1 % (11.6-14.6)
[2020-05-06 23:46] LABS: CHLORIDE 112 mEq/L (98-107)
[2020-05-07 00:30] LABS: INR 1.1; PARTIAL THROMBOPLASTIN TIME 33.7 sec (23.4-31.0); PROTHROMBIN TIME 11.8 sec (9.6-11.0)
[2020-05-07] MEDS ORDERED: SODIUM BICARBONATE 8.4% 1 MEQ/ML 50ML SYR IV ONE ×2 (01:30)
[2020-05-07] MEDS ORDERED: LORAZEPAM 2MG/ML CPJ IV ONE (01:45)
[2020-05-07] MEDS ORDERED: HYDROCODONE/ACETAMINOPHEN 5/325MG TABLET PO PRN (02:15)
[2020-05-07] MEDS ORDERED: DOCUSATE SODIUM 100MG CAPSULE PO PRN (02:15)
[2020-05-07] MEDS ORDERED: CLONIDINE 0.1MG TABLET PO PRN (02:15)
[2020-05-07] MEDS ORDERED: IPRATROPIUM/ALBUTEROL 0.5-3(2.5)MG/3ML NEB NEB PRN (02:15)
[2020-05-07] MEDS ORDERED: ONDANSETRON HCL 4MG/2ML INJ IV PRN (02:15)
[2020-05-07] MEDS ORDERED: MAGNESIUM/ALUMINUM HYDROXIDE/SIMETHICONE 30ML UDC PO PRN (02:15)
[2020-05-07] MEDS ORDERED: PIPERACILLIN/TAZ 3.375G PREMIX 50 ML IV SCH (02:30)
[2020-05-07] MEDS ORDERED: SODIUM CHLORIDE 0.9% 1,000 ML IV SCH (03:00)
[2020-05-07] MEDS ORDERED: ASPIRIN 300MG SUPP PR ONE (03:00)
[2020-05-07 05:10] LABS: CHLORIDE 117 mEq/L (98-107)
[2020-05-07 05:22] LABS: CREATINE KINASE 94 IU/L (39-308)
[2020-05-07 05:23] LABS: CREATINE KINASE MB FRACTION 5.1 ng/mL (0.5-3.6)
[2020-05-07] MEDS: PIPERACILLIN/TAZ 3.375G PREMIX 50 ML IV SCH ×3 (08:00→19:00)
[2020-05-07 09:29] LABS: CLARITY URINE CLOUDY (CLEAR); COLOR URINE YELLOW (YELLOW); KETONES URINE NEGATIVE (NEGATIVE); LEUKOCYTE ESTERASE URINE 3+ (NEGATIVE); NITRITE URINE NEGATIVE (NEGATIVE); OCCULT BLOOD URINE 2+ (NEGATIVE); PH URINE 6.5 (4.5-8.0); PROTEIN URINE TRACE (NEGATIVE); SPECIFIC GRAVITY URINE 1.018 (1.005-1.030)
[2020-05-07 09:40] LABS: *BARBITURATES SCREEN URINE NEGATIVE (NEGATIVE); CANNABINOID URINE SCREEN NEGATIVE (NEGATIVE); PHENCYCLIDINE URINE SCREEN NEGATIVE (NEGATIVE)
[2020-05-07 09:41] LABS: *AMPHETAMINES SCREEN URINE NEGATIVE (NEGATIVE); *BENZODIAZEPINES SCREEN URINE NEGATIVE (NEGATIVE); *COCAINE SCREEN URINE NEGATIVE (NEGATIVE); METHADONE URINE SCREEN NEGATIVE (NEGATIVE); OPIATES URINE SCREEN NEGATIVE (NEGATIVE)
[2020-05-07] MEDS: SODIUM CHLORIDE 0.45% 1,000 ML IV SCH (09:42)
[2020-05-07] MEDS: VANCOMYCIN 1 G PREMIX 200 ML IV SCH (15:43)
[2020-05-07 16:39] LABS: CREATINE KINASE 105 IU/L (39-308)
[2020-05-07 16:40] LABS: CREATINE KINASE MB FRACTION 7.5 ng/mL (0.5-3.6)
[2020-05-08] VITALS (14 sets, daily range): BP systolic 100–132; BP diastolic 43–65
[2020-05-08] MEDS: PIPERACILLIN/TAZ 3.375G PREMIX 50 ML IV SCH (02:53)
[2020-05-08] MEDS: SODIUM CHLORIDE 0.45% 1,000 ML IV SCH ×2 (03:12→17:54)
[2020-05-08 04:57] LABS: BASOPHILS % 0.4 % (0.0-2.0); EOSINOPHILS % 3.9 % (0.0-5.0); HEMATOCRIT. 25.6 % (42.0-52.0); HEMOGLOBIN. 8.6 g/dL (14.0-18.0); LYMPHOCYTES % 15.9 % (20.0-50.0); MEAN CORPUSCULAR HEMOGLOBIN 32.3 pg (28.0-32.0); MEAN CORPUSCULAR VOLUME 96.4 fL (80.0-94.0); MEAN PLATELET VOLUME 8.2 fl (7.4-10.4); MONOCYTES % 5.6 % (2.0-8.0); NEUTROPHILS % 74.2 % (40.0-76.0); PLATELET 139 x1000/uL (130-400); RED BLOOD CELL COUNT 2.66 mill/uL (4.7-6.1); RED CELL DISTRIBUTION WIDTH 17.2 % (11.6-14.6)
[2020-05-08 05:05] LABS: CHLORIDE 116 mEq/L (98-107)
[2020-05-08 05:12] LABS: LDL CHOLESTEROL 15 mg/dL (5-100)
[2020-05-08 05:13] LABS: HDL CHOLESTEROL 46 mg/dL (40-59)
[2020-05-08] MEDS: VANCOMYCIN 1 G PREMIX 200 ML IV SCH (08:34)
[2020-05-08] MEDS ORDERED: CEFTRIAXONE 1 G PREMIX 50 ML IV SCH (15:00)
[2020-05-08] MEDS ORDERED: AZITHROMYCIN 500 MG TABLET PO SCH (15:00)
[2020-05-08] MEDS: ENOXAPARIN 40MG/0.4ML SYR SUBCUT SCH (15:35)
[2020-05-08] MEDS ORDERED: PIPERACILLIN/TAZOBACTAM 3.375 G in DEXT 5% WATER 100 ML IV SCH (16:00)
[2020-05-08] MEDS ORDERED: DEXTROSE 50% WATER 50ML SYRINGE IV PRN (19:45)
[2020-05-08] MEDS ORDERED: MIDODRINE HCL 5MG TABLET PO SCH (20:00)
[2020-05-08] MEDS ORDERED: NOREPINEPHRINE 4 MG in DEXT 5% WATER 246 ML IV PRN ×2 (20:15→21:15)
[2020-05-08] MEDS: BLOOD SUGAR DIAGNOSTIC STRIP TEST SCH (21:00)
[2020-05-08] MEDS: INSULIN LISPRO 100 UNITS/ML SUBCUT SCH (21:00)
[2020-05-08] MEDS ORDERED: DOPAMINE 400MG/250ML PREMIX 250 ML IV PRN (21:30)
[2020-05-08 21:42] LABS: BG BASE EXCESS -5.1 mmol/L (-2.0-2.0); BG CARBOXYHEMOGLOBIN 0.6 % (0.5-1.5); BG DEOXYHEMOGLOBIN 0.4 % (0.0-5.0); BG FRACTION INSPIRED OXYGEN 100; BG METHEMOGLOBIN 0.4 % (0.0-1.5); BG OXYGEN SATURATION 99.6 % (92.0-98.5); BG OXYHEMOGLOBIN 98.6 % (94.0-97.0); BG PCO2 58.5 mmHg (35.0-45.0); BG PH 7.213 (7.350-7.450); BG PO2 244.6 mmHg (75.0-100.0); BG SAMPLE SITE RIGHT FEMORAL; BG VENT MODE MASK - NRB
[2020-05-08] MEDS ORDERED: MIDODRINE HCL 5MG TABLET PO NR (22:00)
[2020-05-08 23:23] LABS: BG BASE EXCESS -6.6 mmol/L (-2.0-2.0); BG CARBOXYHEMOGLOBIN 0.8 % (0.5-1.5); BG DEOXYHEMOGLOBIN 5.5 % (0.0-5.0); BG FRACTION INSPIRED OXYGEN 40; BG HCO3 ACT 21.2 mmol/L (22.0-26.0); BG METHEMOGLOBIN 0.4 % (0.0-1.5); BG OXYGEN SATURATION 94.4 % (92.0-98.5); BG OXYHEMOGLOBIN 93.3 % (94.0-97.0); BG PCO2 55.7 mmHg (35.0-45.0); BG PH 7.198 (7.350-7.450); BG PO2 84.5 mmHg (75.0-100.0); BG SAMPLE SITE RIGHT BRACHIAL; BG VENT MODE MASK - SIMPLE
[2020-05-09] VITALS (87 sets, daily range): BP systolic 81–144; BP diastolic 31–93
[2020-05-09 00:03] LABS: BASOPHILS % 0.2 % (0.0-2.0); EOSINOPHILS % 0.6 % (0.0-5.0); HEMATOCRIT. 22.9 % (42.0-52.0); HEMOGLOBIN. 7.6 g/dL (14.0-18.0); LYMPHOCYTES % 9.5 % (20.0-50.0); MEAN CORPUSCULAR HEMOGLOBIN 31.9 pg (28.0-32.0); MEAN CORPUSCULAR VOLUME 96.6 fL (80.0-94.0); MEAN PLATELET VOLUME 8.2 fl (7.4-10.4); MONOCYTES % 6.9 % (2.0-8.0); NEUTROPHILS % 82.8 % (40.0-76.0); PLATELET 122 x1000/uL (130-400); RED BLOOD CELL COUNT 2.37 mill/uL (4.7-6.1); RED CELL DISTRIBUTION WIDTH 16.9 % (11.6-14.6)
[2020-05-09 00:06] LABS: CHLORIDE 115 mEq/L (98-107)
[2020-05-09 00:12] LABS: INR 1.2; PROTHROMBIN TIME 12.7 sec (9.6-11.0)
[2020-05-09] MEDS: DOPAMINE 400MG/250ML PREMIX 250 ML IV PRN (03:26)
[2020-05-09] MEDS: CEFEPIME 1,000 MG in DEXTROSE 5% WATER 50 ML IV SCH (04:14)
[2020-05-09] MEDS: MICAFUNGIN 100 MG in SODIUM CHLORIDE 0.9% 100 ML IV SCH (05:05)
[2020-05-09 05:59] LABS: BASOPHILS % 0.3 % (0.0-2.0); EOSINOPHILS % 1.1 % (0.0-5.0); HEMATOCRIT. 22.1 % (42.0-52.0); HEMOGLOBIN. 7.2 g/dL (14.0-18.0); LYMPHOCYTES % 7.8 % (20.0-50.0); MEAN CORPUSCULAR HEMOGLOBIN 31.5 pg (28.0-32.0); MEAN CORPUSCULAR VOLUME 96.9 fL (80.0-94.0); MEAN PLATELET VOLUME 8.3 fl (7.4-10.4); MONOCYTES % 8.3 % (2.0-8.0); NEUTROPHILS % 82.5 % (40.0-76.0); PLATELET 118 x1000/uL (130-400); RED BLOOD CELL COUNT 2.28 mill/uL (4.7-6.1); RED CELL DISTRIBUTION WIDTH 16.9 % (11.6-14.6)
[2020-05-09 06:05] LABS: CHLORIDE 115 mEq/L (98-107)
[2020-05-09] MEDS: BLOOD SUGAR DIAGNOSTIC STRIP TEST SCH ×4 (06:23→21:25)
[2020-05-09] MEDS: INSULIN LISPRO 100 UNITS/ML SUBCUT SCH ×4 (06:24→21:00)
[2020-05-09 08:42] LABS: BG BASE EXCESS -3.4 mmol/L (-2.0-2.0); BG CARBOXYHEMOGLOBIN 0.6 % (0.5-1.5); BG DEOXYHEMOGLOBIN 3.1 % (0.0-5.0); BG FRACTION INSPIRED OXYGEN 40; BG HCO3 ACT 23.5 mmol/L (22.0-26.0); BG METHEMOGLOBIN 0.3 % (0.0-1.5); BG OXYGEN SATURATION 96.9 % (92.0-98.5); BG PCO2 52.5 mmHg (35.0-45.0); BG PH 7.268 (7.350-7.450); BG PO2 94.8 mmHg (75.0-100.0); BG SAMPLE SITE RIGHT BRACHIAL; BG TOTAL HEMOGLOBIN 7.6 g/dL (12.0-18.0); BG VENT MODE MASK - SIMPLE
[2020-05-09] MEDS: MIDODRINE HCL 5MG TABLET PO SCH ×3 (08:53→17:24)
[2020-05-09] MEDS: ENOXAPARIN 40MG/0.4ML SYR SUBCUT SCH (08:54)
[2020-05-09 10:14] LABS: VITAMIN B12 SERUM 1210 pg/mL (211-911)
[2020-05-09] MEDS: SODIUM CHLORIDE 0.45% 1,000 ML IV SCH ×2 (11:23→13:29)
[2020-05-09] MEDS ORDERED: DEXT 5%/0.45% NACL 1000ML 1,000 ML IV SCH (12:15)
[2020-05-09] MEDS ORDERED: ALBUMIN HUMAN 25GM/100ML (25%) IV NR (13:15)
[2020-05-10] VITALS (97 sets, daily range): BP systolic 86–151; BP diastolic 30–100
[2020-05-10] MEDS: SODIUM CHLORIDE 0.45% 1,000 ML IV SCH (02:04)
[2020-05-10] MEDS: CEFEPIME 1,000 MG in DEXTROSE 5% WATER 50 ML IV SCH (03:38)
[2020-05-10] MEDS: MICAFUNGIN 100 MG in SODIUM CHLORIDE 0.9% 100 ML IV SCH (04:41)
[2020-05-10] MEDS: DOPAMINE 400MG/250ML PREMIX 250 ML IV PRN (06:02)
[2020-05-10] MEDS: INSULIN LISPRO 100 UNITS/ML SUBCUT SCH ×4 (06:02→21:00)
[2020-05-10] MEDS: BLOOD SUGAR DIAGNOSTIC STRIP TEST SCH ×4 (06:02→21:00)
[2020-05-10] MEDS: MIDODRINE HCL 5MG TABLET PO SCH ×3 (08:44→18:13)
[2020-05-10] MEDS: ENOXAPARIN 40MG/0.4ML SYR SUBCUT SCH (08:45)
[2020-05-10 09:11] LABS: FOLATE HEMATOCRIT 24.5 % (37.5-51.0)
[2020-05-10 11:10] LABS: BASOPHILS % 0.4 % (0.0-2.0); EOSINOPHILS % 2.6 % (0.0-5.0); LYMPHOCYTES % 16.5 % (20.0-50.0); MEAN CORPUSCULAR VOLUME 96.2 fL (80.0-94.0); MEAN PLATELET VOLUME 8.3 fl (7.4-10.4); MONOCYTES % 5.9 % (2.0-8.0); NEUTROPHILS % 74.6 % (40.0-76.0); PLATELET 128 x1000/uL (130-400); RED BLOOD CELL COUNT 2.11 mill/uL (4.7-6.1); RED CELL DISTRIBUTION WIDTH 17.5 % (11.6-14.6)
[2020-05-10 11:11] LABS: CHLORIDE 113 mEq/L (98-107)
[2020-05-10 11:13] LABS: HEMATOCRIT. 20.3 % (42.0-52.0); HEMOGLOBIN. 6.8 g/dL (14.0-18.0)
[2020-05-10 11:19] LABS: PHOSPHORUS 3.3 mg/dL (2.5-4.9)
[2020-05-10 12:43] LABS: BG BASE EXCESS -5.4 mmol/L (-2.0-2.0); BG CARBOXYHEMOGLOBIN 0.9 % (0.5-1.5); BG DEOXYHEMOGLOBIN 0.8 % (0.0-5.0); BG FRACTION INSPIRED OXYGEN 36; BG HCO3 ACT 21.7 mmol/L (22.0-26.0); BG METHEMOGLOBIN 0.3 % (0.0-1.5); BG OXYGEN SATURATION 99.2 % (92.0-98.5); BG PCO2 52.4 mmHg (35.0-45.0); BG PH 7.234 (7.350-7.450); BG PO2 156.4 mmHg (75.0-100.0); BG SAMPLE SITE RIGHT BRACHIAL; BG TOTAL HEMOGLOBIN 6.6 g/dL (12.0-18.0); BG VENT MODE NASAL CANNULA
[2020-05-10 14:08] LABS: FOLATE RBC 1608 ng/mL (>498)
[2020-05-10] MEDS ORDERED: LORAZEPAM 2MG/ML CPJ IV PRN (15:15)
[2020-05-10] MEDS ORDERED: HALOPERIDOL LACTATE 5MG/ML VIAL IM SCH (15:45)
[2020-05-11] VITALS (97 sets, daily range): BP systolic 83–144; BP diastolic 32–80
[2020-05-11] MEDS: CEFEPIME 1,000 MG in DEXTROSE 5% WATER 50 ML IV SCH (03:26)
[2020-05-11] MEDS: MICAFUNGIN 100 MG in SODIUM CHLORIDE 0.9% 100 ML IV SCH (04:00)
[2020-05-11 04:52] LABS: BASOPHILS % 0.3 % (0.0-2.0); EOSINOPHILS % 3.8 % (0.0-5.0); HEMATOCRIT. 23.2 % (42.0-52.0); HEMOGLOBIN. 7.7 g/dL (14.0-18.0); LYMPHOCYTES % 17.9 % (20.0-50.0); MEAN CORPUSCULAR HEMOGLOBIN 31.3 pg (28.0-32.0); MEAN CORPUSCULAR VOLUME 94.7 fL (80.0-94.0); MEAN PLATELET VOLUME 8.8 fl (7.4-10.4); MONOCYTES % 6.7 % (2.0-8.0); NEUTROPHILS % 71.3 % (40.0-76.0); PLATELET 143 x1000/uL (130-400); RED BLOOD CELL COUNT 2.45 mill/uL (4.7-6.1); RED CELL DISTRIBUTION WIDTH 17.7 % (11.6-14.6)
[2020-05-11 04:53] LABS: CHLORIDE 116 mEq/L (98-107)
[2020-05-11] MEDS: BLOOD SUGAR DIAGNOSTIC STRIP TEST SCH ×4 (06:01→21:20)
[2020-05-11] MEDS: INSULIN LISPRO 100 UNITS/ML SUBCUT SCH ×4 (06:01→21:00)
[2020-05-11] MEDS: MIDODRINE HCL 5MG TABLET PO SCH ×2 (08:24→21:26)
[2020-05-11] MEDS ORDERED: HALOPERIDOL LACTATE 5MG/ML VIAL IM NR (11:00)
[2020-05-11] MEDS ORDERED: MIDODRINE HCL 5MG TABLET PO NR (12:00)
[2020-05-11] MEDS: PANTOPRAZOLE SODIUM 40 MG/VIAL IV SCH (12:11)
[2020-05-12] VITALS (67 sets, daily range): BP systolic 89–160; BP diastolic 34–126
[2020-05-12] MEDS: CEFEPIME 1,000 MG in DEXTROSE 5% WATER 50 ML IV SCH (03:16)
[2020-05-12 04:54] LABS: BASOPHILS % 0.6 % (0.0-2.0); EOSINOPHILS % 4.3 % (0.0-5.0); HEMATOCRIT. 25.2 % (42.0-52.0); HEMOGLOBIN. 8.3 g/dL (14.0-18.0); LYMPHOCYTES % 15.8 % (20.0-50.0); MEAN CORPUSCULAR HEMOGLOBIN 31.1 pg (28.0-32.0); MEAN CORPUSCULAR VOLUME 94.7 fL (80.0-94.0); MONOCYTES % 5.8 % (2.0-8.0); NEUTROPHILS % 73.5 % (40.0-76.0); PLATELET 169 x1000/uL (130-400); RED BLOOD CELL COUNT 2.66 mill/uL (4.7-6.1); RED CELL DISTRIBUTION WIDTH 18.1 % (11.6-14.6)
[2020-05-12] MEDS: MICAFUNGIN 100 MG in SODIUM CHLORIDE 0.9% 100 ML IV SCH (05:06)
[2020-05-12] MEDS ORDERED: HYDROCODONE/ACETAMINOPHEN 5/325MG TABLET PO PRN (05:30)
[2020-05-12 06:18] LABS: CHLORIDE 119 mEq/L (98-107)
[2020-05-12] MEDS: BLOOD SUGAR DIAGNOSTIC STRIP TEST SCH ×4 (06:23→20:37)
[2020-05-12] MEDS: INSULIN LISPRO 100 UNITS/ML SUBCUT SCH ×4 (06:23→20:38)
[2020-05-12] MEDS: MIDODRINE HCL 5MG TABLET PO SCH ×3 (06:24→21:36)
[2020-05-12] MEDS: PANTOPRAZOLE SODIUM 40 MG/VIAL IV SCH (09:08)
[2020-05-13] VITALS (61 sets, daily range): BP systolic 98–174; BP diastolic 23–121
[2020-05-13] MEDS: CEFEPIME 1,000 MG in DEXTROSE 5% WATER 50 ML IV SCH (03:42)
[2020-05-13] MEDS: MICAFUNGIN 100 MG in SODIUM CHLORIDE 0.9% 100 ML IV SCH (04:36)
[2020-05-13] MEDS: MIDODRINE HCL 5MG TABLET PO SCH ×3 (06:00→21:35)
[2020-05-13 06:02] LABS: CHLORIDE 117 mEq/L (98-107)
[2020-05-13 06:07] LABS: BASOPHILS % 0.3 % (0.0-2.0); EOSINOPHILS % 5.5 % (0.0-5.0); HEMATOCRIT. 26.3 % (42.0-52.0); HEMOGLOBIN. 8.7 g/dL (14.0-18.0); LYMPHOCYTES % 22.1 % (20.0-50.0); MEAN CORPUSCULAR HEMOGLOBIN 31.4 pg (28.0-32.0); MEAN CORPUSCULAR VOLUME 95.3 fL (80.0-94.0); MEAN PLATELET VOLUME 8.6 fl (7.4-10.4); MONOCYTES % 6.4 % (2.0-8.0); NEUTROPHILS % 65.7 % (40.0-76.0); PLATELET 169 x1000/uL (130-400); RED BLOOD CELL COUNT 2.76 mill/uL (4.7-6.1)
[2020-05-13] MEDS: INSULIN LISPRO 100 UNITS/ML SUBCUT SCH ×4 (07:00→21:00)
[2020-05-13] MEDS: BLOOD SUGAR DIAGNOSTIC STRIP TEST SCH ×4 (07:06→21:28)
[2020-05-13] MEDS: PANTOPRAZOLE SODIUM 40 MG/VIAL IV SCH (09:56)
[2020-05-13] MEDS ORDERED: SODIUM POLYSTYRENE SULFONATE 15 G/60 ML BOT PEG NR (12:30)
[2020-05-14] VITALS (56 sets, daily range): BP systolic 97–156; BP diastolic 37–100
[2020-05-14] MEDS: CEFEPIME 1,000 MG in DEXTROSE 5% WATER 50 ML IV SCH (03:27)
[2020-05-14] MEDS: MICAFUNGIN 100 MG in SODIUM CHLORIDE 0.9% 100 ML IV SCH (04:24)
[2020-05-14 04:58] LABS: BASOPHILS % 0.4 % (0.0-2.0); CHLORIDE 118 mEq/L (98-107); EOSINOPHILS % 5.2 % (0.0-5.0); HEMATOCRIT. 25.1 % (42.0-52.0); HEMOGLOBIN. 8.1 g/dL (14.0-18.0); LYMPHOCYTES % 11.3 % (20.0-50.0); MEAN CORPUSCULAR HEMOGLOBIN 31.5 pg (28.0-32.0); MEAN CORPUSCULAR VOLUME 97.3 fL (80.0-94.0); MEAN PLATELET VOLUME 8.6 fl (7.4-10.4); MONOCYTES % 6.1 % (2.0-8.0); PLATELET 163 x1000/uL (130-400); RED BLOOD CELL COUNT 2.58 mill/uL (4.7-6.1); RED CELL DISTRIBUTION WIDTH 17.8 % (11.6-14.6)
[2020-05-14] MEDS: MIDODRINE HCL 5MG TABLET PO SCH ×4 (06:00→21:35)
[2020-05-14] MEDS: BLOOD SUGAR DIAGNOSTIC STRIP TEST SCH ×4 (06:29→21:05)
[2020-05-14] MEDS: INSULIN LISPRO 100 UNITS/ML SUBCUT SCH ×4 (06:29→21:13)
[2020-05-14] MEDS ORDERED: DEXT 5% WATER 500 ML IV ONE (10:15)
[2020-05-14] MEDS: PANTOPRAZOLE SODIUM 40 MG/VIAL IV SCH (12:34)
== END 2020-05-14 21:54 | disposition expired | DRG 871 ==
LOC: ER 22:09 → MICUSO 05-07 02:10 → EDBEDREQ 05-07 02:15 → EDBEDREQTM 05-07 02:15 → EDBEDREQDT 05-07 02:15 → 7WST 05-08 17:52 → MICUSO 05-09 01:45
PROVIDERS: ADMIT Internal Medicine; ATTEND Internal Medicine
PROC: 30233N1 Transfusion of Nonautologous Red Blood Cells into Peripheral Vein, Percutaneous Approach (ICD-10-PCS; principal; 2020-05-10)
PROC: 5A1935Z Respiratory Ventilation, Less than 24 Consecutive Hours (ICD-10-PCS; 2020-05-10)
PROC: 0BH18EZ Insertion of Endotracheal Airway into Trachea, Via Natural or Artificial Opening Endoscopic (ICD-10-PCS; 2020-05-10)
DX: A41.89 Other specified sepsis (principal); U07.1 COVID-19; E43 Unspecified severe protein-calorie malnutrition; J96.01 Acute respiratory failure with hypoxia; J12.89 Other viral pneumonia; N17.9 Acute kidney failure, unspecified; N39.0 Urinary tract infection, site not specified; G93.40 Encephalopathy, unspecified; E87.2 Acidosis; I42.9 Cardiomyopathy, unspecified; I48.20 Chronic atrial fibrillation, unspecified; I50.32 Chronic diastolic (congestive) heart failure; K94.23 Gastrostomy malfunction; L97.429 Non-pressure chronic ulcer of left heel and midfoot with unspecified severity; M86.9 Osteomyelitis, unspecified; Z68.1 Body mass index [BMI] 19.9 or less, adult; E86.0 Dehydration; I27.20 Pulmonary hypertension, unspecified; E87.5 Hyperkalemia; E78.5 Hyperlipidemia, unspecified; R13.10 Dysphagia, unspecified; D53.9 Nutritional anemia, unspecified; B97.89 Other viral agents as the cause of diseases classified elsewhere; E11.40 Type 2 diabetes mellitus with diabetic neuropathy, unspecified; E11.621 Type 2 diabetes mellitus with foot ulcer; E11.69 Type 2 diabetes mellitus with other specified complication; E78.00 Pure hypercholesterolemia, unspecified; F03.90 Unspecified dementia, unspecified severity, without behavioral disturbance, psychotic disturbance, mood disturbance, and anxiety; F25.9 Schizoaffective disorder, unspecified; I11.0 Hypertensive heart disease with heart failure; I46.9 Cardiac arrest, cause unspecified; K21.9 Gastro-esophageal reflux disease without esophagitis; Z66 Do not resuscitate; Z87.440 Personal history of urinary (tract) infections; Z87.891 Personal history of nicotine dependence; Z95.2 Presence of prosthetic heart valve; Z79.899 Other long term (current) drug therapy; R79.89 Other specified abnormal findings of blood chemistry; I69.391 Dysphagia following cerebral infarction
CPT/HCPCS: 36415; 36600; 71045; 80048; 80053; 80061; 80202; 80305; 81003; 82270; 82375; 82550; 82553; 82607; 82747; 82805; 82962; 83036; 83605; 83735; 83880; 84100; 84145; 84443; 84484; 85014; 85025; 86850; 86900; 86920; 87106; 92950; 93005; 99285; C9113; J0692; J0696; J1265; J1630; J1650; J1815; J2060; J2248; J2543; J3370; J3490; J7030; J7050; J7060; P9016; P9047; C9803-CS; U0003-CS